=== PATIENT | female | born 1950 | race Caucasian/White ===

== ENCOUNTER → 2016-04-03 | Outpatient (CLI) | payer BC ==
[~2016-04-03] MED LIST: CALC-20 PO; LEVO50TA6 PO; LORA10TA5 PO
[2016-04-03 09:41] LABS: BASO % 0.4 %; BASO ABS # 0.02 K/uL (0-0.2); COMPLETE YES; EOS % 0.7 %; HEMATOCRIT 35.3 % (37-47); IG% 0.2 %; LYMPH % 24.2 %; LYMPH ABS # 1.34 K/uL (1.2-3.4); MEAN CELL VOLUME 89.6 fL (80-100); MEAN CORPUSCULAR HEMOGLOBIN 29.7 pg (25-34); MEAN CORPUSCULAR HGB CONC 33.1 g/dl (32-36); MEAN PLATELET VOLUME 11.2 fL (7.4-10.4); NEUT % 65.5 %; PLATELET COUNT 205 K/uL (130-400); RED BLOOD COUNT 3.94 M/uL (4.2-5.4); WHITE BLOOD COUNT 5.53 K/uL (4.8-10.8)
[2016-04-03 10:06] LABS: ALT/SGPT 20 U/L (12-78); BLOOD UREA NITROGEN 15 mg/dl (7-18); BUN/CREATININE RATIO 20.3 (10-20); CALCIUM 8.8 mg/dl (8.5-10.1); CARBON DIOXIDE 26 mmol/L (21-32); CHLORIDE 105 mmol/L (98-107); CHOLESTEROL 224 mg/dl (0-200); CREATININE 0.72 mg/dl (0.60-1.20); GLUCOSE 78 mg/dl (70-99); POTASSIUM 3.7 mmol/L (3.5-5.1); SODIUM 141 mmol/L (136-145); TRIGLYCERIDES 58 mg/dl (0-150); VERY LOW DENSITY LIPOPROT CALC 12 mg/dl
[2016-04-03 10:13] LABS: ALB/GLOB RATIO 1.4 (0.9-2); ALKALINE PHOSPHATASE 43 U/L (45-117); AST/SGOT 17 U/L (15-37); CHOLESTEROL/HDL RATIO 2.9; FERRITIN 82.1 ng/ml (8.0-388.0); HDL CHOLESTEROL 78 mg/dl; LDL CHOLESTEROL CALCULATED 134 mg/dl
== END | disposition home or self-care (01) ==
LOC: C.LAB1850 08:35
PROVIDERS: ATTEND Family Medicine
DX: D64.9 Anemia, unspecified (principal); E55.9 Vitamin D deficiency, unspecified; E78.5 Hyperlipidemia, unspecified

== ENCOUNTER → 2016-07-17 | Outpatient (CLI) | payer BC ==
--- NOTE | 2016-07-17 16:28 | MAMMOGRAPHY REPORT ---
BILATERAL DIGITAL SCREENING MAMMOGRAM TOMOSYNTHESIS WITH CAD: 07/17/2016 CLINICAL HISTORY: Routine screening. Patient has no complaints. TECHNIQUE: Breast tomosynthesis in addition to standard 2D mammography was performed. Current study was also evaluated with a Computer Aided Detection (CAD) system. COMPARISON: Comparison is made to exams dated: 07/14/2015 mammogram, 07/13/2014 mammogram, 07/10/2013 [facility], 06/16/2012 mammogram, 06/23/2011 mammogram, and 01/05/2010 mammo gram - [facility]. BREAST COMPOSITION: There are scattered areas of fibroglandular density in both breasts. FINDINGS: An asymmetry in the medial posterior right breast appears similar on prior mammograms dati ng back to at least 07/10/2013 and likely 06/26/2012, therefore likely benign. No new suspicious ma ss, architectural distortion or cluster of microcalcifications is seen. IMPRESSION: ACR BI-RADS CATEGORY 1: NEGATIVE There is no mammographic evidence of malignancy. A 1 year screening mammogram is recommended. The p atient will receive written notification of the results. Approximately 10% of breast cancers are not detected with mammography. A negative mammographic repor t should not delay biopsy if a clinically suggestive mass is present. Cleo Gaviria M.D. ay/:07/17/2016 16:10:02 Engineer Rf Deployment: Tawana BERUMEN)(Sumi), [facility] letter sent: Normal 1/2 BI-RADS Code: ACR BI-RADS Category 1: Negative
== END | disposition home or self-care (01) ==
LOC: C.MAMM 08:31
PROVIDERS: ATTEND Internal Medicine
DX: Z12.31 Encounter for screening mammogram for malignant neoplasm of breast (principal)

== ENCOUNTER → 2016-12-27 | Outpatient (CLI) | payer BC ==
--- NOTE | 2016-12-27 09:57 | DIAGNOSTIC IMAGING REPORT ---
CHEST 2 VIEWS ROUTINE CLINICAL HISTORY: R06.09 Dyspnea on [id number] Unexplained weight loss COMPARISON STUDY: No previous studies for comparison. FINDINGS: The cardiac and mediastinal contours are normal. There is no evidence of focal pulmonary consolidation. There is no evidence of failure. No pleural effusions are visualized.[ IMPRESSION: No active disease in the chest. Electronically signed by: Rogelio Mtz M.D. 12/27/2016 9:56 AM Dictated Date/Time: 12/27/2016 9:56 AM
== END | disposition home or self-care (01) ==
LOC: C.RAD1850 09:46
PROVIDERS: ATTEND Internal Medicine
DX: R05 Cough (principal); R06.09 Other forms of dyspnea; R63.4 Abnormal weight loss

== ENCOUNTER → 2017-02-12 | Outpatient (CLI) | payer OTHER ==
[2017-02-12 13:06] LABS: BASO % 0.4 %; BASO ABS # 0.03 K/uL (0-0.2); COMPLETE YES; EOS % 0.7 %; HEMATOCRIT 35.6 % (37-47); IG% 0.1 %; LYMPH % 28.8 %; LYMPH ABS # 1.93 K/uL (1.2-3.4); MEAN CORPUSCULAR HEMOGLOBIN 29.5 pg (25-34); MEAN PLATELET VOLUME 11.1 fL (7.4-10.4); MONO % 7.9 %; NEUT % 62.1 %; PLATELET COUNT 220 K/uL (130-400); RED BLOOD COUNT 3.87 M/uL (4.2-5.4)
[2017-02-12 13:40] LABS: ALT/SGPT 20 U/L (12-78); AST/SGOT 14 U/L (15-37); BLOOD UREA NITROGEN 13 mg/dl (7-18); BUN/CREATININE RATIO 18.9 (10-20); CALCIUM 8.4 mg/dl (8.5-10.1); CARBON DIOXIDE 28 mmol/L (21-32); CHLORIDE 102 mmol/L (98-107); CREATININE 0.67 mg/dl (0.60-1.20); GLUCOSE 93 mg/dl (70-99); POTASSIUM 3.4 mmol/L (3.5-5.1); SODIUM 136 mmol/L (136-145)
[2017-02-12 13:50] LABS: ALB/GLOB RATIO 1.1 (0.9-2); ALKALINE PHOSPHATASE 48 U/L (45-117)
== END | disposition home or self-care (01) ==
LOC: C.LAB1850 11:52
PROVIDERS: ATTEND Internal Medicine
DX: E03.9 Hypothyroidism, unspecified (principal); Z00.00 Encounter for general adult medical examination without abnormal findings; R05 Cough; R63.4 Abnormal weight loss

== ENCOUNTER → 2017-04-12 | Day surgery (SDC) | payer OTHER ==
[2017-03-26 14:10] VITALS: BMI 22.0
[~2017-04-12] VITALS: Ht 162.6 cm; Wt 58.2 kg
[~2017-04-12] MED LIST changes: +ASPI325T39 PO; +CHOL1000 PO; -LEVO50TA6 PO; +LEVO75TA PO; +LIDOCAINE HCL 2% 2 ML VIAL (20MG/ML) ONE; -LORA10TA5 PO; +LORA10TA6 PO; +PROPOFOL IV EMULSION 10 MG/ML 20 ML VIAL IV ONE; +SODIUM CHLORIDE 0.9% 500ML 500 ML IV ONE
[2017-04-12 13:12] VITALS: Ht 162.6 cm; Wt 58.2 kg
--- NOTE | 2017-04-12 13:53 | Endo History and Physical ---
History & Physical Date of Service: Apr 12, 2017. Chief Complaint: COUGH, UNEXPLAINED WEIGHT LOSS Referring Physician: DR. GASTON History of Present Illness cough, wt loss, hx polyps Past Surgical History Hx Cardiac Surgery: No Hx Internal Defibrillator: No Hx Pacemaker: No Hx Abdominal Surgery: No Hx of Implantable Prosthesis: No Hx Post-Op Nausea and Vomiting: No Hx Cancer Surgery: No Hx Thoracic Surgery: No Hx Orthopedic: No Hx Urinary Tract Surgery: No Family History None Social History Smoking Status: Never Smoker Hx Substance Use: No Hx Alcohol Use: Yes (OCCASIONAL/SOCIAL) Allergies Coded Allergies: Meperidine (Verified Allergy, Mild, GI UPSET, 03/26/17) Penicillins (Verified Allergy, Mild, PT DOES NOT REMEMBER REACTION, ) Current Medications Reported Home Medications Medications Dose Route/Sig Max Daily Dose Days Date Category Vitamin D3 (Cholecalciferol) 1,000 Unit Tab 1 Tab PO DAILY 03/26/17 Reported Aspirin Ec (Aspirin) 325 Mg Tab 325 Mg PO DAILY PRN 03/26/17 Reported Synthroid (Levothyroxine Sodium) 75 Mcg Tab 75 Mcg PO QAM 03/26/17 Reported Calcium 600 + D (Calcium Carbonate-Vitamin D) 1 Tab Tab 1 Tablet PO DAILY 04/09/13 Reported Claritin (Loratadine) 10 Mg Tab 10 Mg PO WK 04/09/13 Reported Vital Signs Weight (Kilograms): 58.18 Height (Feet): 5 Height (Inches): 4 Date Time Temp Pulse Resp B/P (MAP) Pulse Ox O2 Delivery O2 Flow Rate FiO2 04/12/17 13:20 37 74 18 144/66 (92) 99 Room Air Physical Exam General Appearance: WD/WN, no apparent distress Respiratory/Chest: Auscultation: breath sounds normal Cardiovascular: Heart Auscultation: RRR Abdomen: Bowel Sounds: normal Inspection & Palpation: soft, non-distended, no tenderness, guarding & rebound Assessment and Plan EGD/colon
--- NOTE | 2017-04-12 14:35 | Discharge Instructions ---
Endoscopy Patient Instructions Date / Procedure(s) Performed Apr 12, 2017. Colonoscopy, EGD Allergy Information Coded Allergies: Meperidine (Verified Allergy, Mild, GI UPSET, 03/26/17) Penicillins (Verified Allergy, Mild, PT DOES NOT REMEMBER REACTION, ) Discharge Date / Findings Apr 12, 2017. 1) normal EGD/push enterscopy-bx'd 2) colon with polyp removed/hemorrhoids Medication Instructions Restart Stopped Medication(s): Reported Home Medications Medications Dose Route/Sig Max Daily Dose Days Date Category Vitamin D3 (Cholecalciferol) 1,000 Unit Tab 1 Tab PO DAILY 03/26/17 Reported Aspirin Ec (Aspirin) 325 Mg Tab 325 Mg PO DAILY PRN 03/26/17 Reported Synthroid (Levothyroxine Sodium) 75 Mcg Tab 75 Mcg PO QAM 03/26/17 Reported Calcium 600 + D (Calcium Carbonate-Vitamin D) 1 Tab Tab 1 Tablet PO DAILY 04/09/13 Reported Claritin (Loratadine) 10 Mg Tab 10 Mg PO WK 04/09/13 Reported Reported Home Medications Medications Dose Route/Sig Max Daily Dose Days Date Category Vitamin D3 (Cholecalciferol) 1,000 Unit Tab 1 Tab PO DAILY 03/26/17 Reported Aspirin Ec (Aspirin) 325 Mg Tab 325 Mg PO DAILY PRN 03/26/17 Reported Synthroid (Levothyroxine Sodium) 75 Mcg Tab 75 Mcg PO QAM 03/26/17 Reported Calcium 600 + D (Calcium Carbonate-Vitamin D) 1 Tab Tab 1 Tablet PO DAILY 04/09/13 Reported Claritin (Loratadine) 10 Mg Tab 10 Mg PO WK 04/09/13 Reported Provider Instructions Activity Restrictions - No exercising or heavy lifting for 24 hours. - Do not drink alcohol the day of the procedure. - Do not drive a car or operate machinery until the day after the procedure. - Do not make any important decisions or sign important papers in 24 hours after the procedure. Following Day: - Return to full activity which may include returning to work/school. Diet Start your diet with liquids and light foods (jello, soup, juice, toast). Then eat your usual diet if not nauseated. Treatment For Common After Affects For mild abdominal pain, bloating, or excessive gas: - Rest - Eat lightly - Lie on right side Follow-Up Information Follow-up with DR. GASTON as scheduled Anesthesia Information What You Should Know You have had a procedure that required some medicine to reduce anxiety and discomfort. This treatment is called moderate sedation. After receiving the treatment, you may be sleepy, but you will be able to breathe on your own. The effects of the treatment may last for several hours. Follow these instructions along with Activity/Diet recommendations noted above: * Do NOT do anything where dizziness or clumsiness would be dangerous. * Rest quietly at home today, then you can be up and about tomorrow. * Have a responsible person stay with you the rest of today. * You may have had an I.V. today. If so, you may take the dressing off later today. Recommendations Call your doctor if: * Trouble breathing * Continuous vomiting for more than 24 hours * Temperature above 101 degrees * Severe abdominal pain or bloating * Pain not relieved by pain medicine ordered * There is increased drainage or redness from any incision * A large amount of rectal bleeding greater than 2-3 tablespoons. (If you had a polyp/s removed or have hemorrhoids, a small amount of blood - from the rectum is to be expected.) * You have any unanswered questions or concerns. IN THE EVENT OF A SERIOUS EMERGENCY, GO TO THE NEAREST EMERGENCY ROOM Your discharge instructions were prepared by provider Jose Fuentes. Patient Instructions Signature Page Natalee Leyva Patient (or Guardian) Signature/Date: I have read and understand the instructions given to me by my caregivers. Caregiver/RN/Doctor Signature/Date: The above-named patient and/or guardian has received patient instructions on this date. + Original Patient Signature Page (only) stays with chart. Please make copy for patient.
--- NOTE | 2017-04-12 14:47 | GI REPORT ---
Procedure Date: 04/12/2017 1:10 PM Procedure: Colonoscopy Indications: High risk colon cancer surveillance: Personal history of colonic polyps Medicines: Propofol per Anesthesia Complications: No immediate complications. Estimated blood loss: Minimal. Estimated Blood Loss: Estimated blood loss was minimal. Procedure: Pre-Anesthesia Assessment: - Prior to the procedure, a History and Physical was performed, and patient medications and allergies were reviewed. The patient's tolerance of previous anesthesia was also reviewed. The risks and benefits of the procedure and the sedation options and risks were discussed with the patient. All questions were answered, and informed consent was obtained. Prior Anticoagulants: The patient has taken no previous anticoagulant or antiplatelet agents. ASA Grade Assessment: II - A patient with mild systemic disease. After reviewing the risks and benefits, the patient was deemed in satisfactory condition to undergo the procedure. After I obtained informed consent, the scope was passed under direct vision. Throughout the procedure, the patient's blood pressure, pulse, and oxygen saturations were monitored continuously. The scope was introduced through the anus and advanced to the terminal ileum, with identification of the appendiceal orifice and IC valve. The colonoscopy was performed without difficulty. The patient tolerated the procedure well. The quality of the bowel preparation was good. Findings: The perianal and digital rectal examinations were normal. Pertinent negatives include normal sphincter tone, no palpable rectal lesions and no anal lesion or abnormality was detected. A 4 mm polyp was found in the ascending colon. The polyp was sessile. The polyp was removed with a cold biopsy forceps. Resection and retrieval were complete. Estimated blood loss was minimal. Verification of patient identification for the specimen was done by the physician and orthodontic laboratory technician using the patient's name and medical record number. Non-bleeding internal hemorrhoids were found during retroflexion. The hemorrhoids were mild. Verification of patient identification for the specimen was done by the physician and orthodontic laboratory technician using the patient's name and medical record number. The terminal ileum appeared normal. The exam was otherwise without abnormality. The retroflexed view of the distal rectum and anal verge was normal and showed no anal or rectal abnormalities. Impression: - One 4 mm polyp in the ascending colon, removed with a cold biopsy forceps. Resected and retrieved. - Non-bleeding internal hemorrhoids. - The examined portion of the ileum was normal. - The examination was otherwise normal. - The distal rectum and anal verge are normal on retroflexion view. Recommendation: - Discharge patient to home (ambulatory). - Resume regular diet. - Continue present medications. - Await pathology results. - Return to referring physician as previously scheduled. - Repeat colonoscopy for surveillance based on pathology results. MD Jose Lr MD 04/12/2017 2:46:49 PM This report has been signed electronically. Note Initiated On: 04/12/2017 1:10 PM I attest to the content of the Intraoperative Record and orders documented therein, exceptions below
--- NOTE | 2017-04-12 14:51 | GI REPORT ---
Procedure Date: 04/12/2017 1:10 PM Procedure: Upper GI endoscopy Indications: Anorexia, Chronic cough, Weight loss Medicines: Propofol per Anesthesia Complications: No immediate complications. Estimated blood loss: Minimal. Estimated Blood Loss: Estimated blood loss was minimal. Estimated blood loss was minimal. Procedure: Pre-Anesthesia Assessment: - Prior to the procedure, a History and Physical was performed, and patient medications and allergies were reviewed. The patient's tolerance of previous anesthesia was also reviewed. The risks and benefits of the procedure and the sedation options and risks were discussed with the patient. All questions were answered, and informed consent was obtained. Prior Anticoagulants: The patient has taken no previous anticoagulant or antiplatelet agents. ASA Grade Assessment: II - A patient with mild systemic disease. After reviewing the risks and benefits, the patient was deemed in satisfactory condition to undergo the procedure. After obtaining informed consent, the endoscope was passed under direct vision. Throughout the procedure, the patient's blood pressure, pulse, and oxygen saturations were monitored continuously. The scope was introduced through the mouth, and advanced to the proximal jejunum. The upper GI endoscopy was accomplished without difficulty. The patient tolerated the procedure well. Findings: The examined esophagus was normal. The Z-line was regular and was found 40 cm from the incisors. The entire examined stomach was normal. Biopsies were taken with a cold forceps for histology. Estimated blood loss was minimal. Verification of patient identification for the specimen was done by the physician and solar fabrication technician using the patient's name and medical record number. The examined duodenum was normal. Biopsies for histology were taken with a cold forceps for evaluation of celiac disease. Estimated blood loss was minimal. Verification of patient identification for the specimen was done by the physician and solar fabrication technician using the patient's name and medical record number. The examined jejunum was normal. The cardia and gastric fundus were normal on retroflexion. Retained gastric contents are not identified on this exam. A 1 cm hiatal hernia was present. Impression: - Normal esophagus. - Z-line regular, 40 cm from the incisors. - Normal stomach. Biopsied. - Normal examined duodenum. Biopsied. - Normal examined jejunum. Recommendation: - Discharge patient to home (ambulatory). - Resume regular diet. - Continue present medications. - Await pathology results. - Repeat upper endoscopy for surveillance based on pathology results. - Return to referring physician as previously scheduled. MD Jose Lr MD 04/12/2017 2:51:17 PM This report has been signed electronically. Note Initiated On: 04/12/2017 1:10 PM I attest to the content of the Intraoperative Record and orders documented therein, exceptions below
--- NOTE | 2017-04-12 14:54 | Anesthesiology Progress Note ---
Anesthesia Post Op Note Date & Time Apr 12, 2017 at 14:54 Vital Signs Pain Intensity: 0 Vital Signs Past 12 Hours Date Time Temp Pulse Resp B/P (MAP) Pulse Ox O2 Delivery O2 Flow Rate FiO2 04/12/17 13:20 37 74 18 144/66 (92) 99 Room Air Notes Mental Status: alert / awake / arousable, participated in evaluation Pt Amnestic to Procedure: Yes Nausea / Vomiting: adequately controlled Pain: adequately controlled Airway Patency, RR, SpO2: stable & adequate BP & HR: stable & adequate Hydration State: stable & adequate Anesthetic Complications: no major complications apparent
[2017-04-12 15:08] VITALS: BP 143/62; PULSE 68; O2SAT 99
== END | disposition home or self-care (01) ==
LOC: C.GI 12:49
PROVIDERS: ATTEND Internal Medicine Gastroenterology
DX: Z12.11 Encounter for screening for malignant neoplasm of colon (principal); Z86.010 Personal history of colon polyps; K64.8 Other hemorrhoids; R63.0 Anorexia; R05 Cough; K44.9 Diaphragmatic hernia without obstruction or gangrene; J45.909 Unspecified asthma, uncomplicated; Z88.0 Allergy status to penicillin

== ENCOUNTER → 2017-07-19 | Outpatient (CLI) | payer OTHER ==
[~2017-07-19] MED LIST changes: -LIDOCAINE HCL 2% 2 ML VIAL (20MG/ML) ONE; -PROPOFOL IV EMULSION 10 MG/ML 20 ML VIAL IV ONE; -SODIUM CHLORIDE 0.9% 500ML 500 ML IV ONE
--- NOTE | 2017-07-20 07:47 | MAMMOGRAPHY REPORT ---
BILATERAL DIGITAL SCREENING MAMMOGRAM TOMOSYNTHESIS WITH CAD: 07/19/2017 CLINICAL HISTORY: Routine screening. Patient has no complaints. TECHNIQUE: Breast tomosynthesis in addition to standard 2D mammography was performed. Current study was also evaluated with a Computer Aided Detection (CAD) system. COMPARISON: Comparison is made to exams dated: 07/17/2016 mammogram, 07/14/2015 mammogram, 07/13/2014 mamm ogram, 07/10/2013 mammogram - [facility], 06/16/2012 mammogram, and 06/23/2011 mammogram - [facility]. BREAST COMPOSITION: There are scattered areas of fibroglandular density in both breasts. FINDINGS: No suspicious masses, calcifications, or areas of architectural distortion are noted in ei ther breast. There has been no significant interval change compared to prior exams. IMPRESSION: ACR BI-RADS CATEGORY 1: NEGATIVE There is no mammographic evidence of malignancy. A 1 year screening mammogram is recommended. The pa tient will receive written notification of the results. Approximately 10% of breast cancers are not detected with mammography. A negative mammographic report should not delay biopsy if a clinically suggestive mass is present. Annette Araujo M.D. ah/:07/19/2017 09:21:08 Oil Inspector: Lora GUERIN(Rojas)(Sumi)(LAURI), [facility] letter sent: Normal 1/2 BI-RADS Code: ACR BI-RADS Category 1: Negative
== END | disposition home or self-care (01) ==
LOC: C.MAMM 08:43
PROVIDERS: ATTEND Internal Medicine
DX: Z12.31 Encounter for screening mammogram for malignant neoplasm of breast (principal)

== ENCOUNTER → 2017-10-23 | Outpatient (CLI) | payer OTHER | END | disposition home or self-care (01) | LOC: C.MAMM 10:10 | PROVIDERS: ATTEND Internal Medicine | DX: Z00.00 Encounter for general adult medical examination without abnormal findings (principal); M85.89 Other specified disorders of bone density and structure, multiple sites; M81.0 Age-related osteoporosis without current pathological fracture ==

== ENCOUNTER 2023-02-14 07:57 | Inpatient (IN) ==
[2023-02-14 09:41] LABS: Basophils # (auto) 0.04 K/uL (0.00-0.20); Basophils % (auto) 0.8 %; Eosinophils # (auto) 0.01 K/uL (0.00-0.50); Eosinophils % (auto) 0.2 %; Hematocrit (blood only) 36.4 % (37.0-47.0); Hemoglobin 12.1 g/dl (12.0-16.0); Immature Granulocytes # (auto) 0.01 K/uL (0.01-0.20); Immature Granulocytes % (auto) 0.2 %; Lymphocytes # (auto) 1.05 K/uL (1.20-3.40); Lymphocytes % (auto) 21.4 %; Mean Corpuscular Hemoglobin 29.9 pg (25.0-34.0); Mean Corpuscular Hgb Conc 33.2 g/dL (32.0-36.0); Mean Corpuscular Volume 89.9 fL (80.0-100.0); Mean Platelet Volume 10.1 fL (9.4-12.4); Monocytes % (auto) 10.2 %; Neutrophils # (auto) 3.29 K/uL (1.40-6.50); Neutrophils % (auto) 67.2 %; Platelet Count 238 K/uL (130-400); RDW Coefficient of Variation 12.1 % (11.5-14.5); RDW Standard Deviation 40.1 fL (36.4-46.3); Red Blood Count 4.05 M/uL (4.20-5.40)
[2023-02-14 09:51] LABS: Acetaminophen < 3 ug/ml (10-30); Salicylate < 3.0 mg/dl (3.0-30)
[2023-02-14 10:10] LABS: Albumin Globulin Ratio 1.5 (0.9-2); Albumin Level 4.4 gm/dl (3.4-5.0); BUN Creatinine Ratio 14.7 (10-20); Bilirubin,Total 0.9 mg/dl (0.2-1.0); Calcium 9.1 mg/dl (8.6-10.3); Creatinine Clr Calc Pharmacy 53.4 ml/min; Est GFR (African American) 102.7 ml/min; Est GFR (Non-African American) 88.6 ml/min; Globulin 2.9 gm/dl (2.5-4.0); Potassium 3.5 mmol/L (3.5-5.1); Total Protein 7.3 gm/dl (6.0-8.3)
[2023-02-14 10:23] LABS: Thyroid Stimulating Hormone 0.507 uIu/ml (0.300-4.500)
[2023-02-14 10:50] LABS: Appearance Urine Clear (Clear); Bacteria Urine Automated Negative (Negative); Bilirubin Urine Negative (Negative); Blood Urine Trace (Negative); Cast Urine Automated 0 /lpf (0-5); Color Urine Yellow; Epithelial Cell Urine Auto 0-5 /lpf (0-5); Glucose Urine UA Negative (Negative); Ketones Urine Negative (Negative); Leukocyte Esterase Urine Negative (Negative); Nitrite Urine Negative (Negative); Protein Urine Negative (Negative); RBC Urine Automated 0-4 /hpf (0-4); Specific Gravity Urine 1.008 (1.000-1.030); Urobilinogen Urine Negative (Negative); WBC Urine Automated 0 /hpf (0-5)
[2023-02-14 11:29] LABS: Amphetamines+Metham, Urine Neg (Neg); Barbiturates, Urine Neg (Neg); Benzodiazepine, Urine Neg (Neg); Cocaine, Urine Neg (Neg); MDMA (Ecstacy), Urine Neg (Neg); Marijuana, Urine Neg (Neg); Methadone, Urine Neg (Neg); Opiate, Urine Neg (Neg); Phencyclidine, Urine Neg (Neg)
--- NOTE | 2023-02-14 11:51 | Emergency Department Note ---
Impression & Plan AMS (altered mental status), Memory problem ED Provider Note ED Provider Note NAME: SUKUAMR VIERA AGE:72 SEX: Female : 1950 ARRIVES VIA: private vehicle INFORMANT: Patient ED PROVIDER(s): Nadja Macario DO CHIEF COMPLAINT: memory issues HPI: This is a 72-year-old female who presents emergency department stating she is here for an appointment. She states she is "here to get a thing done, that I cannot tell you, because it is very complicated". Patient says she sees Dr. Navas and works with someone who helps her named Vaishali. She states she "supposed to get a thing done that she does not recall the name of and does not know where she is supposed to go but that is why she is here". Patient states she has no pain. She states she does not believe she is sick. She states she takes levothyroxine but cannot recall any other medications. She does not know what her allergies are. When I ask if she is here for blood work she states "I think so". Patient did have labs and urine collected by nursing staff per protocol in triage. Case management did try to speak with the patient in the emergency room. Given her history of depression they did ask questions regarding her mental health. She denied SI or HI then told case management she would no longer speak with them until she speaks with a doctor. Patient states "I can't give you more details bc it is too complicated". She does admit to having difficulty remembering things. On review of EMR, patient's PCP Dr. Navas as well as her outpatient casey saw operator Vaishali, have been in contact with the patient and have been trying to arrange for her to have a neuropsych evaluation as well as an MRI. Patient was scheduled to see neurology last week and did not go to the appointment. The notes document concern for her memory issues and cognitive decline and possible dementia. PAST MEDICAL HISTORY:See Below PAST SURGICAL HISTORY:See Below FAMILY HISTORY:See Below SOCIAL HISTORY:See Below HOME MEDICATIONS:See Below ALLERGIES:See Below VITALS:See Below PHYSICAL EXAMINATION: GENERAL: alert, well appearing, well nourished, no distress, non-toxic EYE EXAM: normal conjunctiva, PERRL and EOM's grossly intact NECK: supple, no nuchal rigidity, no adenopathy, non-tender LUNGS: Clear to auscultation. Normal chest wall mechanics, no w/r/r HEART: no murmurs, S1 normal and S2 normal ABDOMEN: abdomen soft, non-tender, normo-active bowel sounds, no masses, no rebound or guarding. SKIN: no rashes, petechiae, orbruising UPPER EXTREMITIES: upper extremities are grossly normal. FROM, nml pulses b/l. LOWER EXTREMITIES: No pitting edema. FROM, nml pulses b/l. NEURO EXAM: Confused, cranial nerves II-XII grossly intact, normal speech, no facial droop,nogross weakness of arms, no gross weakness of legs. Gross sensation intact. No ataxia. Vital Signs: reviewed and remarkable Differential Diagnosis: ICH, CVA, electrolyte abnormality, anemia, medication ADR, noncompliance, dementia, metabolic encephalopathy, thyroid dysfunction, malnutrition, as well as others were considered MEDICAL DECISION MAKING: This is a 72-year-old female who presents to the emergency department but cannot tell me why. Patient could not answer questions of orientation or give much history. Significant time spent reviewing recent notes in EMR by her PCP as well as outpatient case management. I did contact her PCP as well as her outpatient casey saw operator via [facility] text and then spoke on the phone with her outpatient casey saw operator. I was concerned for patient's own safety and her ability to care for herself given she could not answer questions of orientation could not tell me anything about her medical history, medications, or why she was here. It was concerning also that she had driven in this particular state. Patient's PCP and casey saw operator had been trying to work with her and get her into additional imaging and evaluation due to concern for cognitive decline and likely underlying dementia. I spoke with them several times. I then involved the hospital supervisor pumping and also ask case management to speak with her as well as the office of aging. There was significant discussion and debate regarding patient's capacity for decision making as well as holding her against her well as she stated she wanted to go home. I did not feel patient had capacity to make an informed rational decision and did not have capacity to sign an AMA. This was also discussed with Dr. Arenas of psychiatry who came and evaluated the patient at bedside. I also spoke with the hospital research attorney. I had called and left a message with the primary contact listed in the patient's record Sadia who called back and had had similar concerns noticing she had been declining cognitively and recent weeks. She contacted a brother who then called us and I was able to speak with him additionally. He had similar concerns also was concerned that she was living on her own. He was concerned that she was not eating and likely needed placement. After extensive discussion, case discussed with the hospitalist for additional evaluation and management. Consultation(s): 1135: Discussed with Dr. Navas via [employer] Text. 1149: Discussed with Vaishali, case mgmt, who has been working with the patient. Hx of depression. Refused therapy. Refused neuropsych appointment. She will call and speak with the patient via phone. 1340: Discussed with Vaishali again. She will call the patient again. 1345: I asked charge nurse to contact wash house worker and hospital research attorney. 1422: I left a message with listed primary contact, Sadia. 1422: I asked case filler so contact psychiatrist additionally. 1430: I spoke with wash house worker who states his is an issue for the "ethics committee". I asked them to contact the Office of Aging. 1450: Dr. iDaz now here. Will speak with the patient. 1515: Dr. Diaz recommending keeping the patient for additional evaluation also. 1536: Left a message with Vick Navarrete. 1540: Discussed with Sadia robles's cousin. She states they speak about every 3 weeks. She states she has had the same concerns bc she doesn't seem to know the day. She states her brother did recently visit her and she didn't remember this visit. Her brother, Adam, was concerned for her and suggested she go live at a facility per Sadia. 1606: Discussed with Vick Navarrete. 1622: Spoke with Moo, , brother. Was concerned about "how skinny she was". He feels she has lost 20-30 lbs over the last year. Is concerned that she is still driving. States he does not have room at his house for her to live with him, and they have looked into facilities near where they live outside of [place]. ER Treatment Provided: See below Diagnostics Interpreted By Me: -ECG: [] -Cardiac Monitoring: An order was placed for continuous cardiac monitoring. The monitor shows a rate of 80 with normal sinus rhythm. -Laboratory studies: As stated above and show below. -Imaging studies: [] Triage Nursing Note Reviewed Prior/Outside Records Reviewed Critical care: Critical care of 120 min performed to assess and manage high likelihood of life- threatening altered mental, involving labs and imaging performed with assessment to evaluate altered mental status and concern for capacity with frequent reassessment. This time includes bedside time, treatment discussions with patient/family/consultants, documentation time and excludes procedure time. Past Med/Surg History Medical History Vitamin B12 deficiency Depression Junior's thyroiditis Osteoporosis treated with Prolia - transitioned to alendronate 01/01 Postmenopausal atrophic vaginitis Tubular adenoma Vitamin D deficiency Meniere's disease Hypothyroidism Surgical History History of cataract surgery left History of colonoscopy H/O dilation and curettage x2 Family History Mother Lung cancer Aunt Lung cancer Father Stroke Denies family history of Ovarian cancer Prostate cancer Myocardial infarction Breast cancer Colorectal cancer Social History Smoking Status: Never smoker Second Hand Exposure: No; Do You Dip or Chew Tobacco: No; Hx Alcohol Use: No Hx Substance Use: No Preferred Language: Tajik Communication Ability: confused Visual Impairment: No Limitations Hearing Ability: Hard of Hearing Customer Contact Representative Required: No Beliefs That Will Affect Care: None marital status: Single Current Living Situation: Alone 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 Safe at Home: Yes Safety Concerns: Feels Safe At This Time Safety Concerns Comment: her neighbor has been causing her a lot of problems, "she is crazy." Childhood Exposure to Second-Hand Smoke: No Diet: regular Dental Care, Regularly: No Physical Activity Frequency: Daily Seatbelt Use: always Sunscreen Use: Yes Assistive Devices: Glasses Allergies Allergies Allergy/AdvReac Type Severity Reaction Status Date / Time bee venom protein (honey bee) Allergy Severe Anaphylaxis Verified 02/14/23 12:53 Penicillins Allergy Mild PT DOES Verified 02/14/23 12:53 NOT REMEMBER REACTION house dust Allergy Unknown Unknown Verified 02/14/23 12:53 perfume Allergy Unknown Unknown Verified 02/14/23 12:53 meperidine AdvReac Mild GI UPSET Verified 02/14/23 12:53 coconut AdvReac Unknown Unknown Verified 02/14/23 12:53 feathers AdvReac Unknown Unknown Verified 02/14/23 12:53 grass pollen AdvReac Unknown Unknown Verified 02/14/23 12:53 mold AdvReac Unknown Unknown Verified 02/14/23 12:53 tree and shrub pollen AdvReac Unknown Unknown Verified 02/14/23 12:53 Animal dander Allergy Unknown Unknown Uncoded 02/14/23 12:53 Home Meds Home Medications Medication Instructions Recorded Confirmed calcium citrate 315 mg 1 tab PO QAM 09/20/18 02/14/23 calcium-vitamin D3 6.25 mcg (250 unit) tablet (Citracal + Vitamin D Maximum) psyllium husk 0.4 gram capsule 0.4 g PO DAILY PRN Constipation 11/28/22 02/14/23 (Daily Fiber) alendronate 70 mg tablet 70 mg PO WK 02/14/23 02/14/23 Previous Rx's Medication Instructions Recorded levothyroxine 75 mcg tablet 75 mcg PO DAILY #90 tabs 10/18/22 mecobalamin (vitamin B12) 1,000 1,000 mcg PO DAILY #90 tabs 01/12/23 mcg chewable tablet Results & Data (ED) Vital Signs Vital Signs - 24 hr 02/14/23 08:40 02/14/23 12:18 Temperature 36.5 C Temperature Source Skin Pulse Rate 86 Pulse Rate [Left Finger] 84 Respiratory Rate 20 18 Respiratory Effort / Characteristics Non-Labored Spontaneous Non-Labored Respiratory Depth Normal Normal Respiratory Pattern Regular Blood Pressure 167/87 H Blood Pressure [Left Arm] 159/85 H Blood Pressure Mean 113 Blood Pressure Mean [Left Arm] 109 Blood Pressure Position [Left Arm] Sitting Pulse Oximetry 99 98 Oxygen Delivery Method Room Air Room Air Sepsis Recent Fever Within 48 Hours No Sepsis New/Unexplained Change in Mental Status N/A Sepsis Action Taken by Nursing No Action Required Laboratory Data 02/15/23 06:52 02/15/23 06:52 Lab Results 02/14/23 Range/Units 09:15 WBC 4.90 (4.8-10.8) K/ul RBC 4.05 L (4.20-5.40) M/uL Hgb 12.1 (12.0-16.0) g/dl Hct 36.4 L (37.0-47.0) % MCV 89.9 (80.0-100.0) fL MCH 29.9 (25.0-34.0) pg MCHC 33.2 (32.0-36.0) g/dL RDW Std Deviation 40.1 (36.4-46.3) fL RDW Coeff of Luly 12.1 (11.5-14.5) % Plt Count 238 (130-400) K/uL MPV 10.1 (9.4-12.4) fL Immature Gran % (Auto) 0.2 % Neut % (Auto) 67.2 % Lymph % (Auto) 21.4 % [place] % (Auto) 10.2 % Eos % (Auto) 0.2 % Baso % (Auto) 0.8 % Neut # (Auto) 3.29 (1.40-6.50) K/uL Lymph # (Auto) 1.05 L (1.20-3.40) K/uL [place] # (Auto) 0.50 (0.11-0.59) K/uL Eos # (Auto) 0.01 (0.00-0.50) K/uL Baso # (Auto) 0.04 (0.00-0.20) K/uL Immature Gran # (Auto) 0.01 (0.01-0.20) K/uL Sodium 135 L (136-145) mmol/L Potassium 3.5 (3.5-5.1) mmol/L Chloride 101 (98-107) mmol/L Carbon Dioxide 29 (21-32) mmol/L Anion Gap 5 (3-11) BUN 10 (6-23) mg/dl Creatinine 0.68 (0.6-1.2) mg/dl Est Cr Clr Drug Dosing 53.4 ml/min Est GFR ( Amer) 102.7 ml/min Est GFR (Non-Af Amer) 88.6 ml/min BUN/Creatinine Ratio 14.7 (10-20) Glucose 90 (70-99(Fasting)) mg/dl Calcium 9.1 (8.6-10.3) mg/dl Magnesium 2.4 (1.7-2.4) mg/dl Total Bilirubin 0.9 (0.2-1.0) mg/dl AST 17 (13-39) U/L ALT 12 (7-52) U/L Alkaline Phosphatase 31 L (34-104) U/L Total Protein 7.3 (6.0-8.3) gm/dl Albumin 4.4 (3.4-5.0) gm/dl Globulin 2.9 (2.5-4.0) gm/dl Albumin/Globulin Ratio 1.5 (0.9-2) TSH 0.507 (0.300-4.500) uIu/ml Salicylates < 3.0 L (3.0-30) mg/dl Acetaminophen < 3 L (10-30) ug/ml Ethyl Alcohol mg/dL < 10.0 (<10.0) mg/dl Administered Medications Cyanocobalamin (Cyanocobalamin (B-12) 500 Mcg Tablet) 1,000 mcg PO DAILY [facility] Stop: 03/17/23 08:59 Last Admin: 02/15/23 09:40 Dose: 1,000 mcg Documented By: ALEJANDRA Levothyroxine Sodium (Levothyroxine Sodium 75 Mcg Tablet) [facility]: 03/17/23 06:29 Last Admin: 02/15/23 06:32 Dose: 75 mcg Documented By: MICHAEL Discontinued Medications Olanzapine (Olanzapine Zydis 5 Mg Orally Dis. Tab) 2.5 mg PO ONE PRN PRN Reason: Agitation Last Admin: 02/14/23 20:26 Dose: 2.5 mg Documented By: MMG Imaging Data Radiologist's Impression: Head CT 02/14/23 12:14 CT SCAN OF THE BRAIN WITHOUT IV CONTRAST CLINICAL HISTORY: Change in mental status. COMPARISON STUDY: CT of the brain dated 04/09/2013. TECHNIQUE: Unenhanced axial CT scan of the brain is performed from the vertex to the skull base. A dose lowering technique was utilized adhering to the principles of ALARA. CT DOSE: 625.8 mGy.cm FINDINGS: Brain parenchyma: There is age-related involutional change noting [id number] subcortical and periventricular microangiopathic disease. There is no hemorrhage, mass effect, or evidence of acute territorial ischemia by CT criteria. Pugh-white matter differentiation is preserved. No extra-axial fluid collection is seen. Ventricles, sulci, cisterns: Prominent secondary to involutional change. Intracranial vasculature: There is atherosclerotic calcification of the cavernous carotid arteries. Calvarium: Unremarkable. Sinuses and mastoids: The visualized paranasal sinuses are clear. The mastoid air cells are well pneumatized. Orbits: The bony orbits are grossly intact. There are bilateral ocular lens implants. IMPRESSION: There is no hemorrhage, mass effect, or evidence of acute territorial ischemia by CT criteria. ACT 112: Negative or not required by law. Electronically signed by: Vick Hernandez M.D. 02/14/2023 1:07 PM Discharge Plan Visit Data Chief Complaint: Mental Health Evaluation Stated Complaint: MENTAL HEALTH EVAL ED Provider: Nadja Macario Discharge Problem: AMS (altered mental status), Memory problem Discharge Instructions Interventions: ED Discharge Assessment Last Done: 02/14/23 20:55
--- NOTE | 2023-02-14 13:08 | CT Scan Report ---
CT SCAN OF THE BRAIN WITHOUT IV CONTRAST CLINICAL HISTORY: Change in mental status. COMPARISON STUDY: CT of the brain dated 04/09/2013. TECHNIQUE: Unenhanced axial CT scan of the brain is performed from the vertex to the skull base. A do se lowering technique was utilized adhering to the principles of ALARA. CT DOSE: 625.8 mGy.cm FINDINGS: Brain parenchyma: There is age-related involutional change noting [id number] subcortical and pe riventricular microangiopathic disease. There is no hemorrhage, mass effect, or evidence of acute ter ritorial ischemia by CT criteria. Pugh-white matter differentiation is preserved. No extra-axial flui d collection is seen. Ventricles, sulci, cisterns: Prominent secondary to involutional change. Intracranial vasculature: There is atherosclerotic calcification of the cavernous carotid arteries. Calvarium: Unremarkable. Sinuses and mastoids: The visualized paranasal sinuses are clear. The mastoid air cells are well pneu matized. Orbits: The bony orbits are grossly intact. There are bilateral ocular lens implants. IMPRESSION: There is no hemorrhage, mass effect, or evidence of acute territorial ischemia by CT sharon tovar. ACT 112: Negative or not required by law. Electronically signed by: Vick Hernandez M.D. 02/14/2023 1:07 PM
--- NOTE | 2023-02-14 15:20 | Psychiatric Consultation ---
Date of Consultation February 14, 2023 Impression / Recommendations Impression 72 yo female with progressive cognitive decline, presenting to ED with worsening disorientation. Although seems that she is caring for hygiene, no collateral information is available re: her functioning other than that of her outpatient provider who is concerned about dementia and recommending additional work up. Given that she has no idea where she is, cannot verbalize why she came here, hx of cognitive screening suggesting major cognitive disorder, I agree with Dr. Macario that it is unsafe for her to drive home and it is medically necessary she be [place] [facility] [place] and pending safe disposition. Contributing factors to cognitive decline could include vitamin deficiency. would benefit from MoCA and PHQ-9 when able. (1) Altered mental status: Plan She does not have capacity over her medical decision making at this time. In my medical opinion, there is no evidence of a primary psychiatric disorder that would be causing her presentation and she therefore does not fall under [facility] mental health law. Due to her cognitive disorder, she did seem to become more paranoid as questioning progressed and given time of day I suspect she may sundown outside of her normal home environment. If in need of emergency medication for ED or medical hold for acute agitation related to her dementia would start with Zyprexa 2.5 mg IM. Avoid benzos given age/fall risk and possible paradoxical effects. Suggest treating ED physician or hospitalist group reach out to legal and identify a surrogate medical decision maker HILARY. At the time I met with patient she was not agitated and was fine staying in the ED as long as "no one was going to my house" though she is very in the moment and her level of cooperation may change quickly. CPT Code Overall, I spent a total of 55 minutes with this case, including review of chart, review of records, direct evaluation of the patient, counseling the patient, coordination with ED CM and physician. and documentation. Psych History Identifying Data 72 yo female reportedly lives alone in [place]. Presented to ED with confusion. Stat consult is by Dr. Macario for concerns about capacity as patient seems confused and drove to ED by self. Chief Complaint "I don't want people coming to my house." History of Present Illness Patient with no known psych history, difficult historian due to presumed major cognitive disorder. Outpatient notes from Dr. Navas note a mini-Cog assessment of 0 from last month. Patient is unable to state why she came to the ED or provide a chief complaint. She did arrive to triage with an order for a DEXA scan so it's possible given that she's disoriented that she thought it was the scheduled date. Although she is impeccably dressed and groomed and was initially cooperative with labs, she is now stating that she wants to leave, seems to believe that her car is unsafe in the parking lot. Had to be redirected several times re: recommendations for ongoing monitoring for her AMS and MRI/cognitive testing as recommended by outpatient. Case discussed with Dr. Macario as requiring frequent redirection with security to keep from wandering halls. The patient cannot mention buildings here by name, is unaware of date, when approached about the MoCA states "maybe tomorrow" to avoid being asked questions she can't answer. She is unable to list a single friend or local support and closest family is reportedly in [place]. Apparently denied psych hx but did tell triage nurse she felt more depressed past 1.5 months. Unclear what physical symptoms. No current office of aging involvement. Allergies Allergy/AdvReac Type Severity Reaction Status Date / Time bee venom protein (honey bee) Allergy Severe Anaphylaxis Verified 02/14/23 12:53 Penicillins Allergy Mild PT DOES Verified 02/14/23 12:53 NOT REMEMBER REACTION house dust Allergy Unknown Unknown Verified 02/14/23 12:53 perfume Allergy Unknown Unknown Verified 02/14/23 12:53 meperidine AdvReac Mild GI UPSET Verified 02/14/23 12:53 coconut AdvReac Unknown Unknown Verified 02/14/23 12:53 feathers AdvReac Unknown Unknown Verified 02/14/23 12:53 grass pollen AdvReac Unknown Unknown Verified 02/14/23 12:53 mold AdvReac Unknown Unknown Verified 02/14/23 12:53 tree and shrub pollen AdvReac Unknown Unknown Verified 02/14/23 12:53 Animal dander Allergy Unknown Unknown Uncoded 02/14/23 12:53 Home Medications Medication Instructions Recorded Confirmed Type calcium citrate 315 mg 1 tab PO QAM 09/20/18 02/14/23 History calcium-vitamin D3 6.25 mcg (250 unit) tablet (Citracal + Vitamin D Maximum) levothyroxine 75 mcg tablet 75 mcg PO DAILY #90 tabs 10/18/22 02/14/23 Rx psyllium husk 0.4 gram capsule 0.4 g PO DAILY PRN Constipation 11/28/22 02/14/23 History (Daily Fiber) mecobalamin (vitamin B12) 1,000 1,000 mcg PO DAILY #90 tabs 01/12/23 02/14/23 Rx mcg chewable tablet alendronate 70 mg tablet 70 mg PO WK 02/14/23 02/14/23 History Patient History Medical History Vitamin B12 deficiency Depression Junior's thyroiditis Osteoporosis treated with Prolia - transitioned to alendronate 01/01 Postmenopausal atrophic vaginitis Tubular adenoma Vitamin D deficiency Meniere's disease Hypothyroidism Surgical History History of cataract surgery left History of colonoscopy H/O dilation and curettage x2 Family History Mother Lung cancer Aunt Lung cancer Father Stroke Denies family history of Ovarian cancer Prostate cancer Myocardial infarction Breast cancer Colorectal cancer Social History Smoking Status: Never smoker Second Hand Exposure: No; Do You Dip or Chew Tobacco: No; Hx Alcohol Use: No Hx Substance Use: No Preferred Language: Turkish Communication Ability: Effective Visual Impairment: No Limitations Hearing Ability: Hard of Hearing Strip Feeder Required: No Beliefs That Will Affect Care: None marital status: Single Current Living Situation: Alone 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 Safe at Home: Yes Safety Concerns Comment: her neighbor has been causing her a lot of problems, "she is crazy." Childhood Exposure to Second-Hand Smoke: No Diet: regular Dental Care, Regularly: No Physical Activity Frequency: Daily Seatbelt Use: always Sunscreen Use: Yes Assistive Devices: Glasses Physical Exam Psychiatric: Orientation: alert and oriented to person Apperance: appropriately dressed and appropriately groomed Eye Contact: good eye contact Motor Behavior: no abnormal motor movements Speech: normal rate/rhythm/volume of speech Affect: + anxious affect Mood: + anxious mood Thought Process: + circumstantial thought process and + concrete thought process Thought Content: + paranoid Suicidal Thoughts: denies suicidal thoughts Homicidal Thoughts: denies homicidal thoughts Hallucinations: no auditory hallucinations and no visual hallucinations Cognition: language grossly intact; + attention not intact Insight: + poor insight Judgment: + poor judgement Vital Signs (Past 24 Hours): Last Vital Signs Temp 36.5 C 02/14/23 08:40 Pulse 84 02/14/23 12:18 Resp 18 02/14/23 12:18 BP 159/85 H 02/14/23 12:18 Pulse Ox 98 02/14/23 12:18 O2 Del Method Room Air 02/14/23 12:18 Review of Systems Unobtainable due to cognitive status Results & Data (PSY) Laboratory Results 02/14/23 02/14/23 Range/Units Unknown 09:15 WBC 4.90 (4.8-10.8) K/ul RBC 4.05 L (4.20-5.40) M/uL Hgb 12.1 (12.0-16.0) g/dl Hct 36.4 L (37.0-47.0) % MCV 89.9 (80.0-100.0) fL MCH 29.9 (25.0-34.0) pg MCHC 33.2 (32.0-36.0) g/dL RDW Std Deviation 40.1 (36.4-46.3) fL RDW Coeff of Luly 12.1 (11.5-14.5) % Plt Count 238 (130-400) K/uL MPV 10.1 (9.4-12.4) fL Immature Gran % (Auto) 0.2 % Neut % (Auto) 67.2 % Lymph % (Auto) 21.4 % Jackson % (Auto) 10.2 % Eos % (Auto) 0.2 % Baso % (Auto) 0.8 % Neut # (Auto) 3.29 (1.40-6.50) K/uL Lymph # (Auto) 1.05 L (1.20-3.40) K/uL Jackson # (Auto) 0.50 (0.11-0.59) K/uL Eos # (Auto) 0.01 (0.00-0.50) K/uL Baso # (Auto) 0.04 (0.00-0.20) K/uL Immature Gran # (Auto) 0.01 (0.01-0.20) K/uL Sodium 135 L (136-145) mmol/L Potassium 3.5 (3.5-5.1) mmol/L Chloride 101 (98-107) mmol/L Carbon Dioxide 29 (21-32) mmol/L Anion Gap 5 (3-11) BUN 10 (6-23) mg/dl Creatinine 0.68 (0.6-1.2) mg/dl Est Cr Clr Drug Dosing 53.4 ml/min Est GFR ( Amer) 102.7 ml/min Est GFR (Non-Af Amer) 88.6 ml/min BUN/Creatinine Ratio 14.7 (10-20) Glucose 90 (70-99(Fasting)) mg/dl Calcium 9.1 (8.6-10.3) mg/dl Total Bilirubin 0.9 (0.2-1.0) mg/dl AST 17 (13-39) U/L ALT 12 (7-52) U/L Alkaline Phosphatase 31 L (34-104) U/L Total Protein 7.3 (6.0-8.3) gm/dl Albumin 4.4 (3.4-5.0) gm/dl Globulin 2.9 (2.5-4.0) gm/dl Albumin/Globulin Ratio 1.5 (0.9-2) TSH 0.507 (0.300-4.500) uIu/ml Urine Color Yellow Urine Appearance Clear (Clear) Urine pH 7.0 (4.5-7.5) Ur Specific [place] 1.008 (1.000-1.030) Urine Protein Negative (Negative) Urine Glucose (UA) Negative (Negative) Urine Ketones Negative (Negative) Urine Blood Trace H (Negative) Urine Nitrite Negative (Negative) Urine Bilirubin Negative (Negative) Urine Urobilinogen Negative (Negative) Ur Leukocyte Esterase Negative (Negative) Urine WBC (Auto) 0 (0-5) /hpf Urine RBC (Auto) 0-4 (0-4) /hpf U Hyaline Cast (Auto) 0 (0-5) /lpf U Epithel Cells (Auto) 0-5 (0-5) /lpf Urine Bacteria (Auto) Negative (Negative) Salicylates < 3.0 L (3.0-30) mg/dl Urine Opiates Screen Neg (Neg) Ur Methadone, Qual Neg (Neg) Acetaminophen < 3 L (10-30) ug/ml Urine Barbiturates Neg (Neg) Ur Phencyclidine (PCP) Neg (Neg) U Amphetamin/Meth Scrn Neg (Neg) MDMA (Ecstasy) Screen Neg (Neg) U Benzodiazepines Scrn Neg (Neg) Ur Cocaine Metabolite Neg (Neg) U Marijuana (THC) Screen Neg (Neg) Ethyl Alcohol mg/dL < 10.0 (<10.0) mg/dl Coding Level of Care Code 01427 U Intl Hosp Care Lvl 2 Diagnoses Altered mental status R41.82
[2023-02-14] MEDS ORDERED: OLANZapine 10 MG/2.1 ML SDV IM PRN (15:32)
--- NOTE | 2023-02-14 15:52 | History & Physical Report ---
Date of Service February 14, 2023 Assessment & Plan (1) Memory problem: Plan: Patient is uncertain of why she came to the ED; she reportedly says she was here for an appointment Patient appears anxious, repeatedly walks out of rooms Clinically, patient endorses ongoing difficulty with word finding, confusion, and some memory deficits She denies past medical history of CVA UA negative Tox screen negative Electrolytes WNL Glucose WNL at 90 TSH WNL No leukocytosis; afebrile Head CT revealed NAF We will try to obtain brain MRI if patient is amenable Olanzapine 2.5 mg IM as needed for agitation; please try to use olanzapine 2.5 mg ODT as first option 1:1 observation Psychiatry consulted A.m. CBC, BMP, mag (2) Vitamin B12 deficiency: Plan: Continue vitamin B12 (3) Hypothyroidism: Plan: Continue levothyroxine Plan Disposition: Ad[facility] to [facility] telemetry 1:1 precautions Full code Regular diet VTE PPx: Teds Admission and Anticipated Discharge Date Admission Date: Patient seen and examined, chart reviewed, case discussed with Charles Cortez assessment and plan as above except as otherwise noted Labs and images reviewed Lucille is a 72-year-old female who presents with altered mental status. She did drive to the ER, reports history of anxiety was pending an evaluation of potential dementia versus metabolic encephalopathy as an outpatient. While in the ER she is extremely confused although without infectious or metabolic derangements. Suspected patient may have progressing Alzheimer's dementia. At time of assessment she is not oriented to place, year, and is not able to verbal ize otherwise she was in the hospital order/benefits of leaving little on driving with her level of confusion. She is not with SI/HI, but also does not have capacity to leave at time of assessment. Psychiatry consulted, appreciate recommendations. Lungs are clear, no signs of cellulitis, do not suspect UTI. Agree with management above. Continue one-to-one precautions History of Present Illness Chief Complaint: Mental health evaluation Primary Care Provider: Anita Navas MD Lucille is a 72-year-old female with PMH of hypothyroidism, Mnire's disease, osteoporosis, depression, vitamin B12 deficiency, and memory problems. She pr esented for a mental health evaluation. She reportedly drove herself to the ED for an appointment, and has been depressed for the past year and a half. She states she is not in any pain. She is very anxious about being in the hospital, and is not entirely sure why she is here, but may have been sent in by her PCP Dr. Navas for a brain MRI. She endorses that she has been having ongoing difficulties with word finding, as well as confusion and some memory deficits. Patient exhibits mild hypertension at 159/85; vitals otherwise stable. ROS: Patient endorses difficulty with word finding, urinary difficulties, and some confusion and memory deficits. Patient denies fever, chills, night sweats, chest pain, shortness of breath, pleuritic CP, cough, abdominal pain, N/V/D, or numbness or tingling in the legs. Allergies Allergy/AdvReac Type Severity Reaction Status Date / Time bee venom protein (honey bee) Allergy Severe Anaphylaxis Verified 02/14/23 12:53 Penicillins Allergy Mild PT DOES Verified 02/14/23 12:53 NOT REMEMBER REACTION house dust Allergy Unknown Unknown Verified 02/14/23 12:53 perfume Allergy Unknown Unknown Verified 02/14/23 12:53 meperidine AdvReac Mild GI UPSET Verified 02/14/23 12:53 coconut AdvReac Unknown Unknown Verified 02/14/23 12:53 feathers AdvReac Unknown Unknown Verified 02/14/23 12:53 grass pollen AdvReac Unknown Unknown Verified 02/14/23 12:53 mold AdvReac Unknown Unknown Verified 02/14/23 12:53 tree and shrub pollen AdvReac Unknown Unknown Verified 02/14/23 12:53 Animal dander Allergy Unknown Unknown Uncoded 02/14/23 12:53 Home Medications Medication Instructions Recorded Confirmed Type calcium citrate 315 mg 1 tab PO QAM 09/20/18 02/14/23 History calcium-vitamin D3 6.25 mcg (250 unit) tablet (Citracal + Vitamin D Maximum) levothyroxine 75 mcg tablet 75 mcg PO DAILY #90 tabs 10/18/22 02/14/23 Rx psyllium husk 0.4 gram capsule 0.4 g PO DAILY PRN Constipation 11/28/22 02/14/23 History (Daily Fiber) mecobalamin (vitamin B12) 1,000 1,000 mcg PO DAILY #90 tabs 01/12/23 02/14/23 Rx mcg chewable tablet alendronate 70 mg tablet 70 mg PO WK 02/14/23 02/14/23 History Past Med/Surg History Medical History Vitamin B12 deficiency Depression Junior's thyroiditis Osteoporosis treated with Prolia - transitioned to alendronate 01/01 Postmenopausal atrophic vaginitis Tubular adenoma Vitamin D deficiency Meniere's disease Hypothyroidism Surgical History History of cataract surgery left History of colonoscopy H/O dilation and curettage x2 Family History Mother Lung cancer Aunt Lung cancer Father Stroke Denies family history of Ovarian cancer Prostate cancer Myocardial infarction Breast cancer Colorectal cancer Social History Smoking Status: Never smoker Second Hand Exposure: No; Do You Dip or Chew Tobacco: No; Hx Alcohol Use: No Hx Substance Use: No Preferred Language: Khmer Communication Ability: confused Visual Impairment: No Limitations Hearing Ability: Hard of Hearing Director Of Health Education Required: No Beliefs That Will Affect Care: None marital status: Single Current Living Situation: Alone 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 Safe at Home: Yes Safety Concerns: Feels Safe At This Time Safety Concerns Comment: her neighbor has been causing her a lot of problems, "she is crazy." Childhood Exposure to Second-Hand Smoke: No Diet: regular Dental Care, Regularly: No Physical Activity Frequency: Daily Seatbelt Use: always Sunscreen Use: Yes Assistive Devices: Glasses Review of Systems Review of Systems: See HPI above Physical Exam Physical Exam: General: Anxious; difficulty articulating thoughts; cachectic; non-toxic appear ing HEENT: normocephalic, atraumatic; no scleral icterus; PERRLA w/ EOMs intact; dry mucus membrane; vision and hearing grossly intact Neck: supple; no JVD; no lymphadenopathy; trachea midline; patient does not endorse pain with shrugging/rotating neck Skin: warm, dry without signs of tenting; no cyanosis; no rashes, bruising, lesions, or erythema noted CV: chest wall NTP; RRR; S1/S2 normal; no murmurs/rubs/gallops; pulses intact and symmetric at radial, DP, and PT Lungs: no acute respiratory distress; symmetrical chest wall expansion; clear breath sounds across all lung art w/o adventitious sounds; no wheezing ABD: Soft, NTP; BS present; no rebound/guarding; no ascites; no distention; negative CVA tenderness MSK: no tics or fasciculations; no edema noted in the LEs b/l Neuro: Patient repeatedly walks out of room; confusion; expressive aphasia; difficulty with word finding; thought process noncoherent at times; sensation grossly intact in the LEs, UEs B/L Results & Data Results & Data Vital Signs (Past 12 Hours) Vital Signs Temp Pulse Pulse Resp BP BP Pulse Ox 02/14/23 12:18 84 18 159/85 H 98 02/14/23 08:40 36.5 C 86 20 167/87 H 99 O2 Del Method 02/14/23 12:18 Room Air 02/14/23 08:40 Room Air Laboratory Results Abnormal lab results 02/14/23 02/14/23 Range/Units 09:15 Unknown RBC 4.05 L (4.20-5.40) M/uL Hct 36.4 L (37.0-47.0) % Lymph # (Auto) 1.05 L (1.20-3.40) K/uL Sodium 135 L (136-145) mmol/L Alkaline Phosphatase 31 L (34-104) U/L Urine Blood Trace H (Negative) Salicylates < 3.0 L (3.0-30) mg/dl Acetaminophen < 3 L (10-30) ug/ml Diagnostic Findings Head CT 02/14/23 12:14 CT SCAN OF THE BRAIN WITHOUT IV CONTRAST CLINICAL HISTORY: Change in mental status. COMPARISON STUDY: CT of the brain dated 04/09/2013. TECHNIQUE: Unenhanced axial CT scan of the brain is performed from the vertex to the skull base. A dose lowering technique was utilized adhering to the principles of ALARA. CT DOSE: 625.8 mGy.cm FINDINGS: Brain parenchyma: There is age-related involutional change noting [id number] subcortical and periventricular microangiopathic disease. There is no hemorrhage, mass effect, or evidence of acute territorial ischemia by CT criteria. Pugh-white matter differentiation is preserved. No extra-axial fluid collection is seen. Ventricles, sulci, cisterns: Prominent secondary to involutional change. Intracranial vasculature: There is atherosclerotic calcification of the cavernous carotid arteries. Calvarium: Unremarkable. Sinuses and mastoids: The visualized paranasal sinuses are clear. The mastoid air cells are well pneumatized. Orbits: The bony orbits are grossly intact. There are bilateral ocular lens implants. IMPRESSION: There is no hemorrhage, mass effect, or evidence of acute territorial ischemia by CT criteria. ACT 112: Negative or not required by law. Electronically signed by: Vick Hernandez M.D. 02/14/2023 1:07 PM Code Status & VTE Plan Code Status Full code VTE Prophylaxis Plan VTE Prophylaxis will be ordered: Yes PG Care Time/CCT Total # of Minutes Spent Total Time Spent with Patient: Total time spent is greater than 50% in coordination of care (as documented) at patient's floor/unit and/or counseling patient: C[place] [address] INT INP/OBS CARE 3/75MIN Patient Type Established Medical Decision Making Moderate Complexity Diagnoses Memory problem R41.3 Vitamin B12 deficiency E53.8 Hypothyroidism E03.9
[2023-02-14] MEDS ORDERED: OLANZapine ZYDIS 5 MG ORALLY DIS. TAB PO PRN ×2 (17:12→21:50)
[2023-02-14 17:25] LABS: Magnesium 2.4 mg/dl (1.7-2.4)
[2023-02-14] MEDS ORDERED: ACETAMINOPHEN 325 MG TAB PO PRN (20:55)
--- NOTE | 2023-02-14 23:07 | Magnetic Resonance Report ---
Exam(s): MRI HEAD Without Contrast EXAM: MR Head Without Intravenous Contrast CLINICAL HISTORY: Reason for exam: Word finding difficulty, confusion, mem deficits. TECHNIQUE: Magnetic resonance images of the head/brain without intravenous contrast in multiple planes. COMPARISON: CT head 02/14/2023.. FINDINGS: Brain: Age-appropriate central and peripheral atrophy. Moderate degree of supratentorial periventricular and subcortical white matter hyperintensities on FLAIR and T2-weighted images. No hemorrhage. No acute infarct. No abnormal extra-axial fluid collection. Ventricles: No midline shift. No ventriculomegaly. Bones/joints: Unremarkable. No acute fracture. Sinuses: Unremarkable as visualized. No acute sinusitis. Mastoid air cells: Unremarkable as visualized. No mastoid effusion. Orbits: Unremarkable as visualized. IMPRESSION: 1. No acute stroke or hemorrhage. 2. Nonspecific white matter changes most commonly seen with small vessel disease. Electronically signed by: Greg Enegl M.D. 02/14/23 23:06 PM
[2023-02-15] MEDS: LEVOTHYROXINE SODIUM 75 MCG TABLET PO SCH (06:32)
[2023-02-15 07:08] LABS: Basophils # (auto) 0.04 K/uL (0.00-0.20); Basophils % (auto) 0.8 %; Eosinophils # (auto) 0.02 K/uL (0.00-0.50); Eosinophils % (auto) 0.4 %; Hemoglobin 13.6 g/dl (12.0-16.0); Immature Granulocytes # (auto) 0.01 K/uL (0.01-0.20); Immature Granulocytes % (auto) 0.2 %; Lymphocytes # (auto) 1.23 K/uL (1.20-3.40); Lymphocytes % (auto) 23.3 %; Mean Corpuscular Hemoglobin 30.1 pg (25.0-34.0); Mean Corpuscular Hgb Conc 33.2 g/dL (32.0-36.0); Mean Corpuscular Volume 90.7 fL (80.0-100.0); Mean Platelet Volume 9.8 fL (9.4-12.4); Monocytes # (auto) 0.61 K/uL (0.11-0.59); Monocytes % (auto) 11.6 %; Neutrophils # (auto) 3.36 K/uL (1.40-6.50); Neutrophils % (auto) 63.7 %; Platelet Count 277 K/uL (130-400); RDW Coefficient of Variation 12.3 % (11.5-14.5); RDW Standard Deviation 40.8 fL (36.4-46.3); Red Blood Count 4.52 M/uL (4.20-5.40); White Blood Count 5.27 K/ul (4.8-10.8)
[2023-02-15 07:24] LABS: BUN Creatinine Ratio 14.3 (10-20); Calcium 9.3 mg/dl (8.6-10.3); Creatinine Clr Calc Pharmacy 57.6 ml/min; Est GFR (African American) 105.3 ml/min; Est GFR (Non-African American) 90.9 ml/min; Magnesium 2.4 mg/dl (1.7-2.4); Potassium 3.6 mmol/L (3.5-5.1)
[2023-02-15] MEDS: CYANOCOBALAMIN (B-12) 500 MCG TABLET PO SCH (09:40)
--- NOTE | 2023-02-15 11:26 | Hospitalist Progress Note ---
Date of Service February 15, 2023 Assessment & Plan (1) Memory problem: Plan: - Patient is uncertain of why she came to the ED; she reportedly says she was here for an appointment -Patient endorses ongoing difficulty with word finding, confusion, and some memory deficits x5 months -PCP notes reviewed, failed Mini Cognitive test 01/12. -Workup so far has included the following which have been negative/WNL: -Tox screen, electrolytes, TSH -CT head: no acute findings -MRI brain: no acute finding, nonspecific white matter changes -Olanzapine 2.5 mg IM as needed for agitation; please try to use olanzapine 2.5 mg ODT as first option -1:1 observation Psychiatry consulted -Dr. Del Cid spoke with Dr. Diaz and would not recommend starting antidepressant at this time -Check Vit B12, B1, CRP and ESR -CM following, will need placement -NikolaysinSadia ALLA -PT/OT (2) Vitamin B12 deficiency: Plan: Continue vitamin B12 (3) Hypothyroidism: Plan: Continue levothyroxine 02/14 TSH: 0.507 Plan Disposition: Admit to [facility] 1:1 precautions VTE PPx: Teds Admission and Anticipated Discharge Date Admission Date: February 14, 2023 Supervising Physician Co-Signing Physician Notes Attending Attestation - Chart reviewed, care plan d/w ANIYA Valdovinos. I agree with the peres components of her documentation. David Del Cid MD Subjective [id number] - Patient seen sitting in the chair. Alert to self, but unable to tell me where we are, just [facility]. Unsure of her address, or where she gets her groceries. Is very worried about her car in the parking lot. 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 She does tell me she would be willing to live somewhere safe in the [facility] ([facility] previously mentioned in PCP notes), near her brother or near Sadia. Does admit to me that she has trouble getting words out and "when she gets mad she gets confused" that has been going on for 5+ month. No physical complaints besides being cold. Review of Systems Review of Systems: All systems reviewed & are unremarkable except as noted in Subjective Physical Exam Physical Exam: General: WN/WD, NAD, VS as above Resp: normal respiratory effort, lungs clear to auscultation CV: RRR, no murmur, no edema Abd: n non tender, no hepatosplenomegaly Extremities: Moves all extremities, no edema Neuro: A&O x1, tangential speech Skin: intact, no lesions noted Results & Data Results & Data Vital Signs (Past 12 Hours) Vital Signs Temp Pulse Resp BP Pulse Ox O2 Del Method 02/15/23 04:22 36.6 C 80 18 147/63 H 98 Room Air Laboratory Results CBC and BMP reviewed Diagnostic Findings Head CT 02/14/23 12:14 CT SCAN OF THE BRAIN WITHOUT IV CONTRAST CLINICAL HISTORY: Change in mental status. COMPARISON STUDY: CT of the brain dated 04/09/2013. TECHNIQUE: Unenhanced axial CT scan of the brain is performed from the vertex to the skull base. A dose lowering technique was utilized adhering to the principles of ALARA. CT DOSE: 625.8 mGy.cm FINDINGS: Brain parenchyma: There is age-related involutional change noting plqs-bn-bewabkiy subcortical and periventricular microangiopathic disease. There is no hemorrhage, mass effect, or evidence of acute territorial ischemia by CT criteria. Pugh-white matter differentiation is preserved. No extra-axial fluid collection is seen. Ventricles, sulci, cisterns: Prominent secondary to involutional change. Intracranial vasculature: There is atherosclerotic calcification of the cavernous carotid arteries. Calvarium: Unremarkable. Sinuses and mastoids: The visualized paranasal sinuses are clear. The mastoid air cells are well pneumatized. Orbits: The bony orbits are grossly intact. There are bilateral ocular lens implants. IMPRESSION: There is no hemorrhage, mass effect, or evidence of acute territorial ischemia by CT criteria. ACT 112: Negative or not required by law. Electronically signed by: Vick Hernandez M.D. 02/14/2023 1:07 PM Brain MRI 02/14/23 17:36 Exam(s): MRI HEAD Without Contrast EXAM: MR Head Without Intravenous Contrast CLINICAL HISTORY: Reason for exam: Word finding difficulty, confusion, mem deficits. TECHNIQUE: Magnetic resonance images of the head/brain without intravenous contrast in multiple planes. COMPARISON: CT head 02/14/2023.. FINDINGS: Brain: Age-appropriate central and peripheral atrophy. Moderate degree of supratentorial periventricular and subcortical white matter hyperintensities on FLAIR and T2-weighted images. No hemorrhage. No acute infarct. No abnormal extra-axial fluid collection. Ventricles: No midline shift. No ventriculomegaly. Bones/joints: Unremarkable. No acute fracture. Sinuses: Unremarkable as visualized. No acute sinusitis. Mastoid air cells: Unremarkable as visualized. No mastoid effusion. Orbits: Unremarkable as visualized. IMPRESSION: 1. No acute stroke or hemorrhage. 2. Nonspecific white matter changes most commonly seen with small vessel disease. Electronically signed by: Greg Engel M.D. 02/14/23 23:06 PM PG Care Time/CCT Total # of Minutes Spent Total Time Spent with Patient: Total time spent is greater than 50% in coordination of care (as documented) at patient's floor/unit and/or counseling patient: Coding Level of Care Code 58504 SUB INP/OBS CARE 2/35MIN Diagnoses Memory problem R41.3 Vitamin B12 deficiency E53.8 Hypothyroidism E03.9
--- NOTE | 2023-02-15 15:05 | Communication Note ---
Date of Service: February 15, 2023 case discussed briefly with Dr. Del Cid as patient now admitted medically and initial consult was for capacity to leave ED. Diagnostic impression remains p rimary dementia but questioned possible retrial of an SSRI given clinic notes indicating depression. Reiterated that patient presented to ED with confusion, appears to have preference to avoid antidepressants and symptoms are rathe non specific and mainly tied to living alone in her condo and having a harder time relating to neighbors/caring for self (which are also attributable to dementia). Presentation more consistent with major cognitive disorder rather than pseudodementia and would suggest determining patient's living environment and who will be managing medications before any retrial of Lexapro (doesn't appear that took consistently, etc).
[2023-02-16] MEDS: LEVOTHYROXINE SODIUM 75 MCG TABLET PO SCH (06:01)
[2023-02-16] MEDS: CYANOCOBALAMIN (B-12) 500 MCG TABLET PO SCH (08:56)
--- NOTE | 2023-02-16 11:47 | Hospitalist Progress Note ---
Date of Service February 16, 2023 Assessment & Plan (1) Memory problem: Plan: - Patient is uncertain of why she came to the ED; she reportedly says she was here for an appointment -Patient endorses ongoing difficulty with word finding, confusion, and some memory deficits x5 months -PCP notes reviewed, failed Mini Cognitive test 01/12. -Workup so far has included the following which have been negative/WNL: -Tox screen, electrolytes, TSH, B12, CRP, ESR -CT head: no acute findings -MRI brain: no acute finding, nonspecific white matter changes -Vit B1 level pending -Olanzapine 2.5 mg IM as needed for agitation; please try to use olanzapine 2.5 mg ODT as first option Psychiatry consulted --> suspect major cognitive disorder -CM following, will need placement -Estrella, SadiaALLA - Sadia and Roland (brother) looking at facilities in [place] -PT/OT for placement purposes (2) Vitamin B12 deficiency: Plan: Continue vitamin B12 (3) Hypothyroidism: Plan: Continue levothyroxine 02/14 TSH: 0.507 Plan Disposition: continued inpatient stay until have safe placement VTE PPx: Teds Admission and Anticipated Discharge Date Admission Date: February 14, 2023 Supervising Physician Co-Signing Physician Notes Attending Attestation - Chart reviewed, care plan d/w ANIYA Valdovinos. I agree with the peres components of her documentation. David Del Cid MD Subjective Patient seen standing in her room. Reports stress because it is her birthday and "people wouldnt let this happen". Continues to be very disoriented. Having trouble recalling Sadia's name today. only complaint that she is able to express is that she did not have a BM yesterday or this morning. Denies having pain anywhere. Review of Systems Review of Systems: Unobtainable due to cognitive status Physical Exam Physical Exam: General: WN/WD, mild distress - rummaging through belonging , VS as above Resp: normal respiratory effort, lungs clear to auscultation CV: RRR, no murmur, no edema Extremities: Moves all extremities, no edema Neuro: Alert, oriented to self only, tangential speech Results & Data Results & Data Vital Signs (Past 12 Hours) Vital Signs Temp Pulse Resp BP Pulse Ox O2 Del Method 02/16/23 07:08 36.5 C 72 16 140/70 98 Room Air PG Care Time/CCT Total # of Minutes Spent Total Time Spent with Patient: Total time spent is greater than 50% in coordination of care (as documented) at patient's floor/unit and/or counseling patient: Coding Level of Care Code 02478 SUB INP/OBS CARE 1/25MIN Diagnoses Memory problem R41.3 Vitamin B12 deficiency E53.8 Hypothyroidism E03.9
[2023-02-17] MEDS: LEVOTHYROXINE SODIUM 75 MCG TABLET PO SCH (05:42)
[2023-02-17] MEDS: POLYETHYLENE (MIRALAX) 17 GM PACK PO PRN (05:42)
[2023-02-17] MEDS: CYANOCOBALAMIN (B-12) 500 MCG TABLET PO SCH (08:23)
--- NOTE | 2023-02-17 12:22 | Hospitalist Progress Note ---
Date of Service February 17, 2023 Assessment & Plan (1) Memory problem: Plan: - Patient is uncertain of why she came to the ED; she reportedly says she was here for an appointment -Patient endorses ongoing difficulty with word finding, confusion, and some memory deficits x5 months -PCP notes reviewed, failed Mini Cognitive test 01/12. -Workup so far has included the following which have been negative/WNL: -Tox screen, electrolytes, TSH, B12, CRP, ESR -CT head: no acute findings -MRI brain: no acute finding, nonspecific white matter changes -Vit B1 level pending -Olanzapine 2.5 mg IM as needed for agitation; please try to use olanzapine 2.5 mg ODT as first option Psychiatry consulted --> suspect major cognitive disorder -CM following, will need placement -Sadia De La Rosa POA - Rita and Roland (brother) looking at facilities in [place] -PT/OT for placement purposes (2) Vitamin B12 deficiency: Plan: Continue vitamin B12 (3) Hypothyroidism: Plan: Continue levothyroxine 02/14 TSH: 0.507 Plan Disposition: continued inpatient stay until have safe placement VTE PPx: Teds Admission and Anticipated Discharge Date Admission Date: February 14, 2023 Supervising Physician Co-Signing Physician Notes Attending Attestation - Chart reviewed, care plan d/w ANIYA Valdovinos. I agree with the peres components of her documentation. David Del Cid MD Subjective Patient seen wandering around her room. Continues to be oriented to self only, and very confused. She does report to me that she had a bowel movement this morning. Denies having pain anywhere. Review of Systems Review of Systems: Unobtainable due to cognitive status Physical Exam Physical Exam: General: WN/WD, NAD VS as above Resp: normal respiratory effort, lungs clear to auscultation CV: RRR, no murmur, no edema Extremities: Moves all extremities, no edema Neuro: Alert, oriented to self only, tangential speech Results & Data Results & Data Vital Signs (Past 12 Hours) Vital Signs Temp Pulse Resp BP Pulse Ox O2 Del Method 02/17/23 07:04 36.6 C 88 16 150/79 H 98 Room Air PG Care Time/CCT Total # of Minutes Spent Total Time Spent with Patient: Total time spent is greater than 50% in coordination of care (as documented) at patient's floor/unit and/or counseling patient: Coding Level of Care Code 20264 SUB INP/OBS CARE 04/05MIN Diagnoses Memory problem R41.3 Vitamin B12 deficiency E53.8 Hypothyroidism E03.9
[2023-02-18] MEDS: LEVOTHYROXINE SODIUM 75 MCG TABLET PO SCH (06:02)
[2023-02-18] MEDS: CYANOCOBALAMIN (B-12) 500 MCG TABLET PO SCH (07:46)
--- NOTE | 2023-02-18 12:29 | Hospitalist Progress Note ---
Date of Service February 18, 2023 Assessment & Plan (1) Memory problem: Plan: - Patient is uncertain of why she came to the ED; she reportedly says she was here for an appointment -Patient endorses ongoing difficulty with word finding, confusion, and some memory deficits x5 months -PCP notes reviewed, failed Mini Cognitive test 01/12. -Workup so far has included the following which have been negative/WNL: -Tox screen, electrolytes, TSH, B12, CRP, ESR -CT head: no acute findings -MRI brain: no acute finding, nonspecific white matter changes -Vit B1 level pending -Olanzapine 2.5 mg IM as needed for agitation; please try to use olanzapine 2.5 mg ODT as first option Psychiatry consulted --> suspect major cognitive disorder -CM following, will need placement -Estrella, ALLA Mccullough - Sadia and Roland (brother) looking at facilities in [place] -PT/OT for placement purposes (2) Vitamin B12 deficiency: Plan: Continue vitamin B12 (3) Hypothyroidism: Plan: Continue levothyroxine 02/14 TSH: 0.507 Plan Disposition: continued inpatient stay until have safe placement. No new case management updates in the chart. VTE PPx: Teds Admission and Anticipated Discharge Date Admission Date: February 14, 2023 Supervising Physician Co-Signing Physician Notes Attending Attestation - Chart reviewed, care plan d/w ANIYA Valdovinos. I agree with the peres components of her documentation. David Del Cid MD Subjective patient found wandering in the waller looking for Clean linen, easily redirected to her room. patient remains oriented only to self. states she has not talked to Sadia or Adam. However is asking if she is able to shower today Review of Systems Review of Systems: Unobtainable due to cognitive status Physical Exam Physical Exam: General: WN/WD, NAD VS as above Resp: normal respiratory effort, lungs clear to auscultation CV: RRR, no murmur, no edema Extremities: Moves all extremities, no edema Neuro: Alert, oriented to self only, tangential speech Results & Data Results & Data Vital Signs (Past 12 Hours) Vital Signs Temp Pulse Resp BP Pulse Ox O2 Del Method 02/18/23 07:43 36.8 C 90 16 131/76 97 Room Air PG Care Time/CCT Total # of Minutes Spent Total Time Spent with Patient: Total time spent is greater than 50% in coordination of care (as documented) at patient's floor/unit and/or counseling patient: Coding Level of Care Code 07575 SUB INP/OBS CARE 04/05MIN Diagnoses Memory problem R41.3 Vitamin B12 deficiency E53.8 Hypothyroidism E03.9
[2023-02-19] MEDS: LEVOTHYROXINE SODIUM 75 MCG TABLET PO SCH (05:43)
[2023-02-19] MEDS: CYANOCOBALAMIN (B-12) 500 MCG TABLET PO SCH (08:02)
--- NOTE | 2023-02-19 13:10 | Hospitalist Progress Note ---
Date of Service February 19, 2023 Assessment & Plan (1) Memory problem: Plan: Likely dementia - Patient is uncertain of why she came to the ED; she reportedly says she was here for an appointment -Patient endorses ongoing difficulty with word finding, confusion, and some memory deficits x5 months -PCP notes reviewed, failed Mini Cognitive test 01/12. -Workup so far has included the following which have been negative/WNL: -Tox screen, electrolytes, TSH, B12, CRP, ESR -CT head: no acute findings -MRI brain: no acute finding, nonspecific white matter changes -Vit B1 level pending -Olanzapine 2.5 mg IM as needed for agitation; please try to use olanzapine 2.5 mg ODT as first option Psychiatry consulted --> suspect major cognitive disorder -CM following, will need placement -CousinSadia POA - Sadia and Roland (brother) looking at facilities in [place] -PT/OT for placement purposes (2) Vitamin B12 deficiency: Plan: Continue vitamin B12 (3) Hypothyroidism: Plan: Continue levothyroxine 02/14 TSH: 0.507 (4) Underweight: Plan: Underweight, BMI 16.1 kg/m*m/, moderate protein-calorie malnutrition -nutrition supplements ordered Plan Disposition: continued inpatient stay until have safe placement. VTE PPx: Teds Admission and Anticipated Discharge Date Admission Date: February 14, 2023 Supervising Physician Co-Signing Physician Notes Attending Attestation - Chart reviewed, care plan d/w ANIYA Valdovinos. I agree with the peres components of her documentation. David Del Cid MD Subjective patient seen sitting in her room. Continues to be oriented only to self. Tells me she has not spoken to Sadia or Adam. Denies any pain at this time I spoke with ALLA Mccullough, over the the phone. States that she thought that he was going to come [place] this weekend and take her to a facility in [facility]. Sadia has not spoken to Adam since Sunday. Sadia is in the process of talking to the director enterprise data architecture and to Adam to figure out next steps. Informed Sadia of patient's medical state and diagnoses. Case management updated Review of Systems Review of Systems: Unobtainable due to cognitive status Physical Exam Physical Exam: General: WN/WD, NAD VS as above Resp: normal respiratory effort, lungs clear to auscultation CV: RRR, no murmur, no edema Extremities: Moves all extremities, no edema Neuro: Alert, oriented to self only, tangential speech Results & Data Results & Data Vital Signs (Past 12 Hours) Vital Signs Temp Pulse Resp BP Pulse Ox O2 Del Method 02/19/23 08:12 Room Air 02/19/23 07:21 36.7 C 84 16 145/78 H 97 Room Air PG Care Time/CCT Total # of Minutes Spent Total Time Spent with Patient: Total time spent is greater than 50% in coordination of care (as documented) at patient's floor/unit and/or counseling patient: Coding Level of Care Code 07742 SUB INP/OBS CARE 2/35MIN Diagnoses Memory problem R41.3 Vitamin B12 deficiency E53.8 Hypothyroidism E03.9 Underweight R63.6
[2023-02-20] MEDS: LEVOTHYROXINE SODIUM 75 MCG TABLET PO SCH (05:13)
[2023-02-20] MEDS: CYANOCOBALAMIN (B-12) 500 MCG TABLET PO SCH (08:19)
--- NOTE | 2023-02-20 11:36 | Hospitalist Progress Note ---
Date of Service February 20, 2023 Assessment & Plan (1) Memory problem: Plan: Likely dementia - Patient is uncertain of why she came to the ED; she reportedly says she was here for an appointment -Patient endorses ongoing difficulty with word finding, confusion, and some memory deficits x5 months -PCP notes reviewed, failed Mini Cognitive test 01/12. -Workup so far has included the following which have been negative/WNL: -Tox screen, electrolytes, TSH, B12, CRP, ESR, WNL -CT head: no acute findings -MRI brain: no acute finding, nonspecific white matter changes -Olanzapine 2.5 mg ODT as needed for agitation; Psychiatry consulted --> suspect major cognitive disorder, would not start SSRI -CM following, will need placement -Sadia De La Rosa POA - Rita and Roland (brother) looking at facilities in [place] -PT/OT for placement purposes (2) Vitamin B12 deficiency: Plan: Continue vitamin B12 (3) Hypothyroidism: Plan: Continue levothyroxine 02/14 TSH: 0.507 (4) Underweight: Plan: Underweight, BMI 16.1 kg/m*m/, moderate protein-calorie malnutrition -nutrition supplements ordered Plan Disposition: continued inpatient stay until have safe placement. VTE PPx: Teds Admission and Anticipated Discharge Date Admission Date: February 14, 2023 Subjective patient remains pleasantly confused. Continues to be alert only to self, on exam she is sitting at her table eating breakfast, has no physical complaints for me. Does wish to leave the hospital - I reassured her we are trying to find her a safe place to go Review of Systems Review of Systems: Unobtainable due to cognitive status Physical Exam Physical Exam: General: WN/WD, NAD VS as above Resp: normal respiratory effort, lungs clear to auscultation CV: RRR, no murmur, no edema Extremities: Moves all extremities, no edema Neuro: Alert, oriented to self only, tangential speech Results & Data Results & Data Vital Signs (Past 12 Hours) Vital Signs Temp Pulse Resp BP Pulse Ox O2 Del Method 02/20/23 07:14 36.5 C 73 18 123/72 98 Room Air PG Care Time/CCT Total # of Minutes Spent Total Time Spent with Patient: Total time spent is greater than 50% in coordination of care (as documented) at patient's floor/unit and/or counseling patient: Coding Level of Care Code 60424 SUB INP/OBS CARE 04/05MIN Diagnoses Memory problem R41.3 Vitamin B12 deficiency E53.8 Hypothyroidism E03.9 Underweight R63.6
[2023-02-21] MEDS: LEVOTHYROXINE SODIUM 75 MCG TABLET PO SCH (05:35)
[2023-02-21] MEDS: CYANOCOBALAMIN (B-12) 500 MCG TABLET PO SCH (07:56)
--- NOTE | 2023-02-21 08:50 | Hospitalist Progress Note ---
Date of Service February 21, 2023 Assessment & Plan (1) Memory problem: Plan: Likely dementia - Patient is uncertain of why she came to the ED; she reportedly says she was here for an appointment -Patient endorses ongoing difficulty with word finding, confusion, and some memory deficits x5 months -PCP notes reviewed, failed Mini Cognitive test 01/12. -Workup so far has included the following which have been negative/WNL: -Tox screen, electrolytes, TSH, B12, CRP, ESR -CT head: no acute findings -MRI brain: no acute finding, nonspecific white matter changes -Vit B1 level pending -Olanzapine 2.5 mg IM as needed for agitation; please try to use olanzapine 2.5 mg ODT as first option Psychiatry consulted --> suspect major cognitive disorder -CM following, will need placement -Nikolaysin, ALLA Mccullough - Sadia and Roland (brother) looking at facilities in [facility] was to take patient over the weekend. Adam being attempted to be contacted for discussion as patient medically stable -PT/OT for placement purposes 02/21 -- Has clothes from family, reports they are selling her house and finding new place to live. CM following/hopefully able to reach brother Roland about placement/facilities in [facility] reported this past week (2) Vitamin B12 deficiency: Plan: Continue vitamin B12 (3) Hypothyroidism: Plan: 02/14 TSH: 0.507 Continue levothyroxine (4) Underweight: Plan: Underweight, BMI 16.1 kg/m*m/, moderate protein-calorie malnutrition -nutrition supplements ordered , reports good appetite Plan Disposition: continued inpatient stay until have safe placement. VTE PPx: Junior Admission and Anticipated Discharge Date Admission Date: February 14, 2023 Subjective Evaluated this morning, walking around the room. Reports family dropped off clothing for her which she is thankful as she's been wearing the same clothes for a while. Eating/drinking, ambulating in the room without issue. She [place] but that they are selling her house and finding a new place. She states she knows where she is but is unable to come up with the name. Inquiring if cornelius has happened yet. Pleasant confusion. Physical Exam Physical Exam: General: WN/WD, NAD walking around the room, dressed, clothes at bedside Resp: normal respiratory effort, lungs clear to auscultation CV: RRR, no murmur, no edema Extremities: Moves all extremities, no edema Neuro: Alert, oriented to self only, knows in hospital/they are selling her house, but speech tangential Results & Data Results & Data Vital Signs (Past 12 Hours) Vital Signs Temp Pulse Resp BP Pulse Ox O2 Del Method 02/21/23 07:28 36.5 C 79 16 129/74 97 Room Air 02/20/23 22:10 36.5 C 86 16 128/77 97 Room Air PG Care Time/CCT Total # of Minutes Spent Total Time Spent with Patient: Total time spent is greater than 50% in coordination of care (as documented) at patient's floor/unit and/or counseling patient: Coding Level of Care Code 56977 SUB INP/OBS CARE 04/05MIN Diagnoses Memory problem R41.3 Vitamin B12 deficiency E53.8 Hypothyroidism E03.9 Underweight R63.6
[2023-02-22] MEDS: LEVOTHYROXINE SODIUM 75 MCG TABLET PO SCH (06:05)
[2023-02-22] MEDS: CYANOCOBALAMIN (B-12) 500 MCG TABLET PO SCH (07:33)
--- NOTE | 2023-02-22 08:13 | Hospitalist Progress Note ---
Date of Service February 22, 2023 Assessment & Plan (1) Memory problem: Plan: Likely dementia Patient is uncertain of why she came to the ED; she reportedly says she was here for an appointment Patient endorses ongoing difficulty with word finding, confusion, and some memory deficits x5 months PCP notes reviewed, failed Mini Cognitive test 01/12. Workup so far has included the following which have been negative/WNL: -Tox screen, electrolytes, TSH, B12, CRP, ESR -CT head: no acute findings -MRI brain: no acute finding, nonspecific white matter changes Vit B1 level NOT deficient. B12 low normal, replacement ordered Olanzapine 2.5 mg IM as needed for agitation; please try to use olanzapine 2.5 mg ODT as first option Psychiatry consulted --> suspect major cognitive disorder CM following, will need placement -[facility], [facility] - Sadia and Roland (brother) looking at facilities in [facility] was to take patient over the weekend. Adam being attempted to be contacted for discussion as patient medically stable PT/OT for placement purposes 02/21- Has clothes from family, reports they are selling her house and finding new place to live. CM following/hopefully able to reach brother Roland about placement/facilities in [facility] reported this past week 02/22 Patient dressed/ambulating the halls. Talked w/ brother Adam on phone, very upset with him and not taking care of things/still being stuck in the hospital. Appears to me she has significant component of anxiety/depression, possibly making memory/dementia issue WORSE. Discussed at length about trial of something like vistaril short term for anxiety symptoms vs SSRI as this may take time to be effective. She wants to hold off for now until she talks w/ Adam this afternoon after he speaks with traffic control operator. She is VERY frustrated about still being in the hospital and that something bad will happen as her brother "doesn't take care of anything". -- Continued discussions about vistaril/antidepressant to be undertaken. Could also consider remeron/something for appetite/weight gain as well but does report decent appetite Messaged psych about consultation for anxiety/depression -- appreciate additional recs/assistance Continued inpatient stay, CM following (2) Vitamin B12 deficiency: Plan: B12 182, low normal and placed on 1000mcg daily (3) Hypothyroidism: Plan: 02/14 TSH: 0.507 Continue levothyroxine (4) Underweight: Plan: Underweight, BMI 16.1 kg/m*m/, moderate protein-calorie malnutrition -nutrition supplements ordered , reports good appetite ? Remeron for mood/appetite. psych consulted as above Plan Disposition: continued inpatient stay until have safe placement.. CM following No evidence for DVT, has been ambulating the halls without issue. Admission and Anticipated Discharge Date Admission Date: February 14, 2023 Supervising Physician Co-Signing Physician Notes The patient was not seen by me. The chart was reviewed. Case discussed with ANIYA Vidal. Agree with assessment and plan Subjective Eval this morning, has been ambulating the halls, no acute distress. Wondering when she will be leaving, inquiring about diet menu/ordering. Support provided, CM following. Tearful, call from brother Adam in room. States he NEEDs to talk with traffic control operator, he states he is talking with one today. Cousin Sadia is POA. She notes at least her cousin visted last two days, Adam hasn't been in at all. She notes he doesnt take care of things and you have to be on top of him to get anything done. She is frustrated about continued inpatient stay, anxiety/depression. 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 Physical Exam Physical Exam: General: WN/WD, NAD walking around the room, dressed, clothes at bedside, tearful at times about being stuck here in the hospital/mad at her brother Resp: normal respiratory effort, lungs clear to auscultation CV: RRR, no murmur, no edema Extremities: Moves all extremities, no edema Neuro: Alert, oriented to self only, knows in hospital/they are selling her house, but speech tangential at times, forgetful/anxious about using the telephone Results & Data Results & Data Vital Signs (Past 12 Hours) Vital Signs Temp Pulse Resp BP Pulse Ox O2 Del Method 02/22/23 08:09 36.4 C L 83 18 128/66 97 Room Air 02/22/23 07:38 Room Air 02/21/23 21:32 36.7 C 85 18 123/67 98 Room Air 02/21/23 21:00 Room Air PG Care Time/CCT Total # of Minutes Spent Total Time Spent with Patient: Total time spent is greater than 50% in coordination of care (as documented) at patient's floor/unit and/or counseling patient: Coding Level of Care Code 11837 SUB INP/OBS CARE 2/35MIN Diagnoses Memory problem R41.3 Vitamin B12 deficiency E53.8 Hypothyroidism E03.9 Underweight R63.6
--- NOTE | 2023-02-22 16:38 | Psychiatric Consultation ---
Date of Consultation February 22, 2023 Impression / Recommendations Impression 02/22/2023: Pt who presented to the ED apparently having been living at home with no documented evidence of marked problems with self-care (based on appearance) but with growing concern on the part of her PCP about declining cognitive abilities. Workup since admission hasn't found much of note (though important aspects of dementia evaluations including functional brain imaging and neuropsychological assessment aren't available here). The consensus of treaters and family members seems to be that she requires placement in a structured living environment. I think it's unlikely that her moderate vitamin D deficiency is a significant contributor to her cognitive and reported mood problems, but it certainly could be contributing to both to some degree and should be addressed. Pt has evidenced anxiety and dysphoria, but I agree with Dr. Diaz's previous finding that this really seems primarily attributable to her being disoriented (and relatively aware of that) and uncertain about what her family, especially her brother Adam, are up to. I agree with Dr. Diaz that it seems very unlikely that she has severe enough mood or anxiety symptoms to be contributing to cognitive impairment ("pseudodementia") and that it's much more likely that cognitive impairment is driving some anxiety and dysphoria. Anxiolytics can be very problematic in cognitively-impaired patients: benzodiazepines are often deliriogenic and increase falls risk; antipsychotics increase falls risk and carry significant risk of cardiac side effects such as slowed conduction; and antihistamines are anticholinergic, which not only increases falls risk but can directly impair cognition. In light of pt's low BMI, a relatively low-risk antidepressant such as mirtazapine which tends to increase appetite and which often helps a bit with anxiety could be somewhat helpful. I would anticipate at most only a very modest potential clinical change as a result of any intervention aimed at mood or anxiety. In the absence of a diagnosis of a primary psychiatric disorder, a trial of even a fairly safe medication may not be warranted. There's little significant difference between my mental status exam and Dr. Diaz's a week ago, although I interpret her exam as showing a bit less impairment than mine. I certainly find no evidence of interval improvement. I see nothing to suggest a change from Dr. Diaz's finding that pt does not have the capacity to make rational and informed decisions about healthcare and about related personal care and safety issues such as whether she should drive (which she absolutely should not do) or where she can live safely (definitely not alone). I have not assessed formally other dimensions of capacity, such as testamentary or financial capacity to the extent that would allow me to provide a detailed opinion about them (nor would I really be able to do such a forensic assessment here given lack of access to crucial financial and other records). However, I do agree with the catalytic case operator's documented opinion that pt does not have the capacity to execute meadows of biomedical engineering internship or designate additional [id number]. i haven't been able to track down the power of biomedical engineering internship documents that pt's cousin was asked to submit, so don't know if they are limited to healthcare or include other meadows. In sum, I don't think my assessment today differs from Dr. Diaz's last week to any meaningful degree either in terms of my finding or in terms of my recommendations. Overall I spent a total of 89 minutes on the floor for this consultation assessment including review of chart records, review of test results, direct evaluation of the patient [id number], risk assessment, discussion with the psychiatric liaison nurse, and documentation in the electronic health record. 02/13/2023 (Dr Diaz): 72 yo female with progressive cognitive decline, presenting to ED with worsening disorientation. Although seems that she is caring for hygiene, no collateral information is available re: her functioning other than that of her outpatient provider who is concerned about dementia and recommending additional work up. Given that she has no idea where she is, cannot verbalize why she came here, hx of cognitive screening suggesting major cognitive disorder, I agree with Dr. Macario that it is unsafe for her to drive home and it is medically necessary she be monitored at [facility] for additional work up and pending safe disposition. Contributing factors to cognitive decline could include vitamin deficiency. (1) Major neurocognitive disorder: Plan 02/22/2023: * I concur with Dr. Diaz's opinion that pt lacks the capacity to make rational and informed medical decisions and that we need to seek substituted judgment from a surrogate previously designated by her in a durable power of biomedical engineering internship for healthcare. Fortunately, we've been in contact with one of the two individuals so designated, the other of whom appears not longer to be in contact with the family. * I can't determine fully whether pt has testamentary capacity, though I do believe she lacks capacity to execute a new DPOAH or designate a new [id number] (such as her brother) and it is very reasonable to question overall testamentary capacity. This has substantial real-world significance in that there are currently or soon will be multiple legal and financial instruments to sign (home sale, car sale, care facility contracts, etc.). I strongly suggest that the best course would be to have BOTH the patient and her [id number] sign any such documents (even if the surrogate only has healthcare meadows of biomedical engineering internship). * If you feel strongly that pt's worries and distress warrant a medication trial, mirtazapine 15 mg QHS might help and would likely be reasonably safe. 02/14/2023: She does not have capacity over her medical decision making at this time. In my medical opinion, there is no evidence of a primary psychiatric di sorder that would be causing her presentation and she therefore does not fall under 302 mental health law. Due to her cognitive disorder, she did seem to become more paranoid as questioning progressed and given time of day I suspect she may sundown outside of her normal home environment. If in need of emergency medication for ED or medical hold for acute agitation related to her dementia would start with Zyprexa 2.5 mg IM. Avoid benzos given age/fall risk and possible paradoxical effects. Suggest treating ED physician or hospitalist group reach out to legal and identify a surrogate medical decision maker HILARY. At the time I met with patient she was not agitated and was fine staying in the ED as long as "no one was going to my house" though she is very in the moment and her level of cooperation may change quickly. Psych History Identifying Data 72 yo female reportedly lives alone in [place]. Presented to ED with confusion, admitted on 02/14/2023 for AMS. Consult is by the hospitalist service for "anxiety/depression, ?capacity". Chief Complaint "I might be going senile". History of Present Illness As part of a thorough review of the available medical records, I have read and incorporated the following notes: Dr. Diaz's consultation note 02/13/2023: "Patient with no known psych history, difficult historian due to presumed major cognitive disorder. Outpatient notes from Dr. Navas note a mini-Cog assessment of 0 from last month. Patient is unable to state why she came to the ED or provide a chief complaint. She did arrive to triage with an order for a DEXA scan so it's possible given that she's disoriented that she thought it was the scheduled date. Although she is impeccably dressed and groomed and was initially cooperative with labs, she is now stating that she wants to leave, seems to believe that her car is unsafe in the parking lot. Had to be redirected several times re: recommendations for ongoing monitoring for her AMS and MRI/cognitive testing as recommended by outpatient. Case discussed with Dr. Macario as requiring frequent redirection with security to keep from wandering halls. The patient cannot mention buildings here by name, is unaware of date, when approached about the [facility] states "maybe tomorrow" to avoid being asked questions she can't answer. She is unable to list a single friend or local support and closest family is reportedly in [place]. Apparently denied psych hx but did tell triage nurse she felt more depressed past 1.5 months. Unclear what physical symptoms. No current office of aging involvement." Dr. Diaz's follow-up note 02/14/2023: "Diagnostic impression remains primary dementia but questioned possible retrial of an SSRI given clinic notes indicating depression. Reiterated that patient presented to ED with confusion, appears to have preference to avoid antidepressants and symptoms are rathe non specific and mainly tied to living alone in her condo and having a harder time relating to neighbors/caring for self (which are also attributable to dementia). Presentation more consistent with major cognitive disorder rather than pseudodementia and would suggest determining patient's living environment and who will be managing medications before any retrial of Lexapro (doesn't appear that took consistently, etc)." Review of the medical record reveals no previous or outside psychiatric records. Review of pertinent labs reveals they are fairly noncontributory though 25-OH vitamin D level on 01/10/2023 was in the deficient range at 24.3 ng/mL and vitamin B12 level was low at 171 pg/mL. The B12 has been rechecked after she was started on replenishment and is currently 182 pg/mL. It doesn't seem as if the vitamin D deficiency was addressed or that a level has been rechecked, though the deficiency is listed on her problem list. A urine toxicology screen was negative for all tested substrates. BAL was <10 mg/dL. Over the course of her admission, pt has evidenced distress relating to the significant life changes that are taking place rapidly around her. These include family's plans to sell her home so she can afford to move to an appropriate level of care, being told she should no longer be driving. After reading notes since admission, it really seems as if pt does not seem very distressed at baseline or when discussing quotidian topics such as holidays or weather but does become worried and dysphoric when talking about plans for moving, dealing with the sale of her home, reasons she can't return to her home, etc. Notes continue to reflect significant cognitive impairment, documenting for example the inability to obtain a useful ROS (on 02/20/2023) due to cognitive impairment, disorientation to time and place (most days), and disorientation to circumstances (consistently). Pt frequently voices her feeling that her cousin is reliable and that her brother is not, even though staff have typically been able to get in contact with one or the other (though often only with one and not both) and that it seems as if both have roughly equal distractions from their own lives and seem roughly equally to have been shouldering the load of helping her transition to new housing. On approach pt is cheerful, tells me she's "been trying to go to sleep all day" without success. Was chatting with the nurse ("am I going to see you again before the holidays?") but became anxious as soon as I asked any questions that called for a specific answer. She is oriented to person; "this place", "can't think of the town", "[place]", unable to categorize the place or to select from a list of 3 options ("is this a cafeteria, hospital, or bus stop?" "I think it's first one"); "twenty-something", "November", gives "the day of the week" as "grapes" (and repeats this when I reframe the question as "the weekday, like Sunday, Sunday..."). Answers most questions by saying she's "not sure what to say" or by asking me "is it good or bad?". Does not evidence awareness of any medical problems (though it might be fair to dinesh that she seems pretty health overall and that she may not objectively think of herself as having medical problems of note) other than that she "might be going senile". When asked what makes her think that, she says "sometimes I have trouble catching words". Upon further clarification it's clear that pt denies any hearing or comprehension difficult but rather means that she has trouble finding the words she wants. She says that she "used to literature a lot". Past Psychiatric History Previous Psych History: unclear - no known previous diagnosis Outpatient Services: none Previous Psych Admissions: none Allergies Allergy/AdvReac Type Severity Reaction Status Date / Time bee venom protein (honey bee) Allergy Severe Anaphylaxis Verified 02/14/23 12:53 Penicillins Allergy Mild PT DOES Verified 02/14/23 12:53 NOT REMEMBER REACTION house dust Allergy Unknown Unknown Verified 02/14/23 12:53 perfume Allergy Unknown Unknown Verified 02/14/23 12:53 meperidine AdvReac Mild GI UPSET Verified 02/14/23 12:53 coconut AdvReac Unknown Unknown Verified 02/14/23 12:53 feathers AdvReac Unknown Unknown Verified 02/14/23 12:53 grass pollen AdvReac Unknown Unknown Verified 02/14/23 12:53 mold AdvReac Unknown Unknown Verified 02/14/23 12:53 tree and shrub pollen AdvReac Unknown Unknown Verified 02/14/23 12:53 Animal dander Allergy Unknown Unknown Uncoded 02/14/23 12:53 Home Medications Medication Instructions Recorded Confirmed Type calcium citrate 315 mg 1 tab PO QAM 09/20/18 02/14/23 History calcium-vitamin D3 6.25 mcg (250 unit) tablet (Citracal + Vitamin D Maximum) levothyroxine 75 mcg tablet 75 mcg PO DAILY #90 tabs 10/18/22 02/14/23 Rx psyllium husk 0.4 gram capsule 0.4 g PO DAILY PRN Constipation 11/28/22 02/14/23 History (Daily Fiber) mecobalamin (vitamin B12) 1,000 1,000 mcg PO DAILY #90 tabs 01/12/23 02/14/23 Rx mcg chewable tablet alendronate 70 mg tablet 70 mg PO WK #12 tabs 02/22/23 Rx Patient History Medical History (Updated 02/22/23 @ 16:57 by Hammad Quigley MD) Major neurocognitive disorder Vitamin B12 deficiency Depression Junior's thyroiditis Osteoporosis treated with Prolia - transitioned to alendronate 01/01 Postmenopausal atrophic vaginitis Tubular adenoma Vitamin D deficiency Meniere's disease Hypothyroidism Surgical History History of cataract surgery left History of colonoscopy H/O dilation and curettage x2 Family History Mother Lung cancer Aunt Lung cancer Father Stroke Denies family history of Ovarian cancer Prostate cancer Myocardial infarction Breast cancer Colorectal cancer Social History Smoking Status: Never smoker Second Hand Exposure: No; Do You Dip or Chew Tobacco: No; Hx Alcohol Use: No Hx Substance Use: No Preferred Language: Frisian Communication Ability: confused Visual Impairment: No Limitations Hearing Ability: Hard of Hearing Extruding Press Operator Required: No Beliefs That Will Affect Care: None marital status: Single Current Living Situation: Alone 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 Safe at Home: Yes Safety Concerns: Feels Safe At This Time Safety Concerns Comment: her neighbor has been causing her a lot of problems, "she is crazy." Childhood Exposure to Second-Hand Smoke: No Diet: regular Dental Care, Regularly: No Physical Activity Frequency: Daily Seatbelt Use: always Sunscreen Use: Yes Assistive Devices: Glasses Physical Exam Psychiatric: Orientation: alert and oriented to person; + not oriented to place ("[place]" only; can't categorize "hospital" or select from list), + not oriented to time ("", "November", day of week = "") and not guarded Apperance: appropriately dressed and appropriately groomed (carries purse on the crook of her arm) Eye Contact: good eye contact Motor Behavior: no abnormal motor movements Speech: normal rate/rhythm/volume of speech (marked word-finding difficulty) Affect: + anxious affect Mood: + anxious mood Thought Process: + circumstantial thought process and + conc rete thought process; no confabulations (asked if she remembered me: "no") Thought Content: + paranoid (suspicious of my motives) Suicidal Thoughts: denies suicidal thoughts Homicidal Thoughts: denies homicidal thoughts Hallucinations: no auditory hallucinations and no visual hallucinations Cognition: + recent memory not intact, + remote memory not intact, + attention not intact and + language not intact (word-finding difficulty) Estimated Intelligence: consistent with education level Insight: + impaired insight Judgment: + impaired judgement Vital Signs (Past 24 Hours): Last Vital Signs Temp 36.6 C 02/22/23 15:13 Pulse 84 02/22/23 15:13 Resp 18 02/22/23 15:13 BP 143/81 H 02/22/23 15:13 Pulse Ox 97 02/22/23 15:13 O2 Del Method Room Air 02/22/23 15:13 Review of Systems is not able to participate in a useful LEANN due to cognitive impairments Results & Data (PSY) Medications Administered Cyanocobalamin (Cyanocobalamin (B-12) 500 Mcg Tablet) 1,000 mcg PO DAILY GIUSEPPE Stop: 03/17/23 08:59 Last Admin: 02/22/23 07:33 Dose: 1,000 mcg Documented By: CARLOS A Admin: 02/21/23 07:56 Dose: 1,000 mcg Documented By: CARLOS A Admin: 02/20/23 08:19 Dose: Not Given Documented By: Admin: 02/19/23 08:02 Dose: 1,000 mcg Documented By: Admin: 02/18/23 07:46 Dose: 1,000 mcg Documented By: Admin: 02/17/23 08:23 Dose: 1,000 mcg Documented By: Admin: 02/16/23 08:56 Dose: 1,000 mcg Documented By: Admin: 02/15/23 09:40 Dose: 1,000 mcg Documented By: ALEJANDRA Levothyroxine Sodium (Levothyroxine Sodium 75 Mcg Tablet) 75 mcg PO DAILYBB GIUSEPPE Stop: 03/17/23 06:29 Last Admin: 02/22/23 06:05 Dose: 75 mcg Documented By: Admin: 02/21/23 05:35 Dose: 75 mcg Documented By: Admin: 02/20/23 05:13 Dose: 75 mcg Documented By: Admin: 02/19/23 05:43 Dose: 75 mcg Documented By: Admin: 02/18/23 06:02 Dose: 75 mcg Documented By: Admin: 02/17/23 05:42 Dose: 75 mcg Documented By: Admin: 02/16/23 06:01 Dose: 75 mcg Documented By: Admin: 02/15/23 06:32 Dose: 75 mcg Documented By: MICHAEL Olanzapine (Olanzapine Zydis 5 Mg Orally Dis. Tab) 2.5 mg PO ONE PRN PRN Reason: Agitation Last Admin: 02/15/23 21:00 Dose: 2.5 mg Documented By: ELLEN Polyethylene Glycol (Polyethylene (Miralax) 17 Gm Pack) 17 gm PO DAILY PRN PRN Reason: Constipation Stop: 03/18/23 11:41 Last Admin: 02/17/23 05:42 Dose: 17 gm Documented By: KEMAL Coding Level of Care Code 03273 [facility] Hosp Care l 3 Diagnoses Major neurocognitive disorder F03.90 Time Spent (min) 89
[2023-02-23] MEDS: LEVOTHYROXINE SODIUM 75 MCG TABLET PO SCH (05:39)
[2023-02-23] MEDS: CYANOCOBALAMIN (B-12) 500 MCG TABLET PO SCH (07:32)
--- NOTE | 2023-02-23 08:23 | Hospitalist Progress Note ---
Date of Service February 23, 2023 Assessment & Plan (1) Memory problem: Plan: Likely dementia Patient is uncertain of why she came to the ED; she reportedly says she was here for an appointment Patient endorses ongoing difficulty with word finding, confusion, and some memory deficits x5 months PCP notes reviewed, failed Mini Cognitive test 01/12. Workup so far has included the following which have been negative/WNL: -Tox screen, electrolytes, TSH, B12, CRP, ESR -CT head: no acute findings -MRI brain: no acute finding, nonspecific white matter changes Vit B1 level NOT deficient. B12 low normal, replacement ordered Olanzapine 2.5 mg IM as needed for agitation; please try to use olanzapine 2.5 mg ODT as first option Psychiatry consulted --> suspect major cognitive disorder CM following, will need placement -Nikol[facility]in, ALLA Mccullough - Benny and Roland (brother) looking at facilities in [facility] was to take patient over the weekend. Radha being attempted to be contacted for discussion as patient medically stable PT/OT for placement purposes 02/21-brought in clothes from family. reports they are selling her house and finding new place to live. CM following/hopefully able to reach brother Roland about placement/facilities in [facility] reported this past week 02/22 Patient dressed/ambulating the halls. Talked w/ brother Radha on phone, very upset with him and not taking care of things/still being stuck in the hospital. Appears to me she has significant component of anxiety/depression, possibly making memory/dementia issue WORSE. Discussed at length about trial of something like vistaril short term for anxiety symptoms vs SSRI as this may take time to be effective. She wants to hold off for now until she talks w/ Radha this afternoon after he speaks with traffic survey technician. She is VERY frustrated about still being in the hospital and that something bad will happen as her brother "doesn't take care of anything". Continued discussions about vistaril/antidepressant to be undertaken. Could also consider remeron/something for appetite/weight gain as well but does report decent appetite Messaged psych about consultation for anxiety/depression -- appreciate additional recs/assistance. Holding off on any medications at present time. 02/23 Stable/ongoing issues w/ placement, CM following. To reach back out to Benny CHAN) about placement. Brother attempted to get POA switched last night -- patient DOES NOT HAVE CAPACITY to make decisions at present. Unsafe for return home. Ongoing inpatient stay She is getting more frustrated daily, olanzepine available if needed but has not required at present time (2) Vitamin B12 deficiency: Plan: B12 182, low normal and placed on 1000mcg daily (3) Hypothyroidism: Plan: 02/14 TSH: 0.507 Continue levothyroxine (4) Underweight: Plan: Underweight, BMI 16.1 kg/m*m/, moderate protein-calorie malnutrition -nutrition supplements ordered , reports good appetite (however not witnessing eating) ? Remeron for mood/appetite. psych consulted as above -- holding off for now Plan Disposition: continued inpatient stay until have safe placement.. CM following No evidence for DVT, has been ambulating the halls without issue. Admission and Anticipated Discharge Date Admission Date: February 14, 2023 Supervising Physician Co-Signing Physician Notes The patient was not seen by me. The chart was reviewed. Case discussed with ANIYA Vidal. Agree with assessment and plan Subjective Patient pacing the hallways today, increased paranoia about people not doing what they are supposed to and about her being here 2-3 weeks and cannot stay any longer. wanted to give radha POA, but then was confused about finding word for POA then relaxed once she found it. Discussed w/ CM and Benny called last night and working on getting facility. Unable to transfer POA w/o capacity and POA already set up prior. She is continually frustrated about being in the hospital and people not knowing what she's been through and how tough of a life she's led and been independent up til this point. She does know she is unsafe for return home by herself, but again frustrated about length of stay. Reassurance provided. Physical Exam Physical Exam: General: WN/WD, NAD walking around the room, dressed, clothes at bedside, tearful at times about being stuck here in the hospital/mad at her brother and benny about not getting her out of here sooner Resp: normal respiratory effort, lungs clear to auscultation CV: RRR, no murmur, no edema Extremities: Moves all extremities, no edema Neuro: Alert, oriented to self only, knows in hospital/they are selling her ho use, but speech tangential at times, forgetful/anxious and noting she has difficulty remembering things frequently repeating herself Results & Data Results & Data Vital Signs (Past 12 Hours) Vital Signs Temp Pulse Resp BP Pulse Ox O2 Del Method 02/23/23 07:29 36.6 C 74 16 131/76 98 Room Air PG Care Time/CCT Total # of Minutes Spent Total Time Spent with Patient: Total time spent is greater than 50% in coordination of care (as documented) at patient's floor/unit and/or counseling patient: Coding Level of Care Code 81183 SUB INP/OBS CARE 25MIN Diagnoses Memory problem R41.3 Vitamin B12 deficiency E53.8 Hypothyroidism E03.9 Underweight R63.6
[2023-02-23] MEDS: CHOLECALCIFEROL 1,000 UNITS 25 MCG TAB PO SCH (10:27)
[2023-02-24] MEDS: LEVOTHYROXINE SODIUM 75 MCG TABLET PO SCH (05:41)
--- NOTE | 2023-02-24 08:11 | Hospitalist Progress Note ---
Date of Service February 24, 2023 Assessment & Plan (1) Memory problem: Plan: Likely dementia Patient is uncertain of why she came to the ED; she reportedly says she was here for an appointment Patient endorses ongoing difficulty with word finding, confusion, and some memory deficits x5 months PCP notes reviewed, failed Mini Cognitive test 01/12. Workup so far has included the following which have been negative/WNL: Tox screen, electrolytes, TSH, B12, CRP, ESR CT head: no acute findings MRI brain: no acute finding, nonspecific white matter changes Vit B1 level NOT deficient. B12 low normal, replacement ordered Olanzapine 2.5 mg IM as needed for agitation; please try to use olanzapine 2.5 mg ODT as first option. HAS NOT REQUIRED Psychiatry consulted earlier, but asked to see again given my concerns for underlying depression/anxiety --> did not feel needing to start medications at this time but did note patient DOES NOT have capacity, ongoing search for placement due to safety. ALLA AMEZCUA working w/ CM about placement (see CM notes, ongoing issues, brother Adam attempted to come to get sign for POA, already in place w/ cousin Sadia) Per PCP notes dating back to Nov 2021, ongoing depression/anxiety w/ issues with her neighbors/discord. Retrial of lexapro mentioned in the past. She was resistant to starting medications then and was hopeful to find a therapist and would be happier if she moved back to the [place] area where family is. In November 2022, patient reporting "feeling stuck" in her current situation, hopeless at times, but denied SI at that time. Will trial low dose remeron for mood/anxiety/depression (also appetite) for this evening to see if any response. appears has had longstanding issues w/ anxiety depression and I do wonder if it is contributing to cognitive deficit. Vit D replacement ordered Support provided as patient w/ continued frustrations about continued inpatient stay but has not required medications for agitation at present time. PT/OT consulted and patient ambulating in the halls without issues however unsafe 2nd to dementia as above and stable for dc once placement found. (2) Vitamin B12 deficiency: Plan: B12 182, low normal and placed on 1000mcg daily and has been taking Also w/ Vit D deficiency and replacement started (declined yesterday but took today) (3) Hypothyroidism: Plan: 02/14 TSH: 0.507 Continues on levothyroxine 75mcg (4) Underweight: Plan: Underweight, BMI 16.1 kg/m*m/, moderate protein-calorie malnutrition -nutrition supplements ordered , reports good appetite when asked Plan Disposition: continued inpatient stay until have safe placement.. CM following No evidence for DVT, has been ambulating the halls without issue. Admission and Anticipated Discharge Date Admission Date: February 14, 2023 Supervising Physician Co-Signing Physician Notes The patient was not seen by me. The chart was reviewed. Case discussed with ANIYA Vidal. Agree with assessment and plan Subjective continued issues w/ placement, CM following and discussed w/ POA Sadia 02/23 that she is taking care of it. Ambulating independently, continued inpatient stay. frustration about continuing to be here but taking medications as ordered without need for any zyprexa/other. Physical Exam Physical Exam: General: 73yo thin female, fully dressed, ambulating without acute distress. frustrated about continued stay Resp: normal respiratory effort, lungs clear to auscultation CV: RRR, no murmur, no edema Extremities: Moves all extremities, no edema Neuro: Alert, oriented to self only, knows in hospital/they are selling her house, but speech tangential at times, forgetful/anxious and noting she has difficulty remembering things frequently repeating herself Results & Data Results & Data Vital Signs (Past 12 Hours) Vital Signs Temp Pulse Resp BP Pulse Ox O2 Del Method 02/24/23 07:16 36.7 C 81 15 125/63 95 Room Air PG Care Time/CCT Total # of Minutes Spent Total Time Spent with Patient: Total time spent is greater than 50% in coordination of care (as documented) at patient's floor/unit and/or counseling patient: Coding Level of Care Code 78479 SUB INP/OBS CARE 1/25MIN Diagnoses Memory problem R41.3 Vitamin B12 deficiency E53.8 Hypothyroidism E03.9 Underweight R63.6
[2023-02-24] MEDS: CHOLECALCIFEROL 1,000 UNITS 25 MCG TAB PO SCH (09:19)
[2023-02-24] MEDS: CYANOCOBALAMIN (B-12) 500 MCG TABLET PO SCH (09:20)
[2023-02-24] MEDS: MIRTAZAPINE TAB 15 MG TAB PO SCH (19:32)
[2023-02-25] MEDS: LEVOTHYROXINE SODIUM 75 MCG TABLET PO SCH (05:31)
[2023-02-25] MEDS: CYANOCOBALAMIN (B-12) 500 MCG TABLET PO SCH (07:58)
[2023-02-25] MEDS: CHOLECALCIFEROL 1,000 UNITS 25 MCG TAB PO SCH (07:58)
--- NOTE | 2023-02-25 09:42 | Hospitalist Progress Note ---
Date of Service February 25, 2023 Assessment & Plan (1) Memory problem: Plan: Likely dementia Patient is uncertain of why she came to the ED; she reportedly says she was here for an appointment Patient endorses ongoing difficulty with word finding, confusion, and some memory deficits x5 months PCP notes reviewed, failed Mini Cognitive test 01/12. Workup so far has included the following which have been negative/WNL: Tox screen, electrolytes, TSH, B12, CRP, ESR CT head: no acute findings MRI brain: no acute finding, nonspecific white matter changes Vit B1 level NOT deficient. B12 low normal, replacement ordered Olanzapine 2.5 mg IM as needed for agitation; please try to use olanzapine 2.5 mg ODT as first option. HAS NOT REQUIRED Vit D replacement ordered Psychiatry consulted earlier, but asked to see again given my concerns for underlying depression/anxiety --> did not feel needing to start medications at this time but did note patient DOES NOT have capacity, ongoing search for placement due to safety. ALLA cousin SADIA working w/ CM about placement (see CM notes, ongoing issues, brother Adam attempted to come to get sign for POA, already in place w/ cousin Sadia) Per PCP notes dating back to Nov 2021, ongoing depression/anxiety w/ issues with her neighbors/discord. Retrial of lexapro mentioned in the past. She was resistant to starting medications then and was hopeful to find a therapist and would be happier if she moved back to the [place] area where family is. In November 2022, patient reporting "feeling stuck" in her current situation, hope less at times, but denied SI at that time. Trial low dose remeron for mood/anxiety/depression (also appetite) for this evening to see if any response. appears has had longstanding issues w/ anxiety depression and I do wonder if it is contributing to cognitive deficit. --> mood appearing stable today however continued frustration. She reports she DID get some sleep last night (hadn't previously) and will continue such PT/OT consulted and patient ambulating in the halls without issues however unsafe 2nd to dementia as above and stable for dc once placement found. Support provided as patient w/ continued frustrations about continued inpatient stay but has not required medications for agitation at present time. CM following and have left MULTIPLE voicemails for Sadia. Ongoing phone tag/issues w/ placement (2) Vitamin B12 deficiency: Plan: B12 182, low normal and placed on 1000mcg daily and has been taking Also w/ Vit D deficiency and replacement started (declined day prior but has taken) (3) Hypothyroidism: Plan: 02/14 TSH: 0.507 Continues on levothyroxine 75mcg (4) Underweight: Plan: Underweight, BMI 16.1 kg/m*m/, moderate protein-calorie malnutrition -nutrition supplements ordered , reports good appetite when asked Remeron as above, hopefully will improve w/ such as well Plan Disposition: continued inpatient stay until have safe placement.. CM following No evidence for DVT, has been ambulating the halls without issue. Admission and Anticipated Discharge Date Admission Date: February 14, 2023 Supervising Physician Co-Signing Physician Notes The patient was not seen by me. The chart was reviewed. Case discussed with ANIYA Vidal. Agree with assessment and plan Subjective Eval this morning, sitting up in bed. Did get dose Remeron last night and reports she did get some sleep. Continues to be frustrated about continued inpatient stay. She is wanting to talk w/ her brother Adam. Discussed will talk w/ CM today about follow up discussions. Physical Exam Physical Exam: General: 73yo thin female, fully dressed, ambulating without acute distress. 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
[2023-02-25] MEDS: MIRTAZAPINE TAB 15 MG TAB PO SCH (19:55)
[2023-02-26 07:24] LABS: Basophils # (auto) 0.03 K/uL (0.00-0.20); Basophils % (auto) 0.6 %; Eosinophils # (auto) 0.04 K/uL (0.00-0.50); Eosinophils % (auto) 0.8 %; Hematocrit (blood only) 31.9 % (37.0-47.0); Hemoglobin 10.7 g/dl (12.0-16.0); Immature Granulocytes # (auto) 0.02 K/uL (0.01-0.20); Immature Granulocytes % (auto) 0.4 %; Lymphocytes # (auto) 1.38 K/uL (1.20-3.40); Mean Corpuscular Hemoglobin 30.3 pg (25.0-34.0); Mean Corpuscular Hgb Conc 33.5 g/dL (32.0-36.0); Mean Corpuscular Volume 90.4 fL (80.0-100.0); Mean Platelet Volume 10.8 fL (9.4-12.4); Monocytes # (auto) 0.65 K/uL (0.11-0.59); Monocytes % (auto) 13.2 %; Platelet Count 191 K/uL (130-400); RDW Coefficient of Variation 12.4 % (11.5-14.5); RDW Standard Deviation 40.4 fL (36.4-46.3); Red Blood Count 3.53 M/uL (4.20-5.40); White Blood Count 4.92 K/ul (4.8-10.8)
[2023-02-26 07:32] LABS: Albumin Globulin Ratio 1.6 (0.9-2); Albumin Level 3.6 gm/dl (3.4-5.0); BUN Creatinine Ratio 20.6 (10-20); Bilirubin,Total 0.7 mg/dl (0.2-1.0); Calcium 8.4 mg/dl (8.6-10.3); Creatinine Clr Calc Pharmacy 56.8 ml/min; Est GFR (African American) 104.6 ml/min; Est GFR (Non-African American) 90.2 ml/min; Globulin 2.2 gm/dl (2.5-4.0); Total Protein 5.8 gm/dl (6.0-8.3)
[2023-02-26] MEDS: CYANOCOBALAMIN (B-12) 500 MCG TABLET PO SCH (08:31)
[2023-02-26] MEDS: LEVOTHYROXINE SODIUM 75 MCG TABLET PO SCH (08:31)
[2023-02-26] MEDS: CHOLECALCIFEROL 1,000 UNITS 25 MCG TAB PO SCH (08:31)
--- NOTE | 2023-02-26 08:42 | Hospitalist Progress Note ---
Date of Service February 26, 2023 Assessment & Plan (1) Memory problem: Plan: Likely dementia Patient is uncertain of why she came to the ED; she reportedly says she was here for an appointment Patient endorses ongoing difficulty with word finding, confusion, and some memory deficits x5 months PCP notes reviewed, failed Mini Cognitive test 01/12. Workup so far has included the following which have been negative/WNL: Tox screen, electrolytes, TSH, B12, CRP, ESR CT head: no acute findings MRI brain: no acute finding, nonspecific white matter changes Vit B1 level NOT deficient. B12 low normal, replacement ordered Olanzapine 2.5 mg IM as needed for agitation; please try to use olanzapine 2.5 mg ODT as first option. HAS NOT REQUIRED Vit D replacement ordered Psychiatry consulted earlier, but asked to see again given my concerns for underlying depression/anxiety --> did not feel needing to start medications at this time but did note patient DOES NOT have capacity, ongoing search for placement due to safety. ALLA marcussin BENNY working w/ CM about placement (see CM notes, ongoing issues, brother Adam attempted to come to get sign for POA, already in place w/ cousin Benny) Per PCP notes dating back to Nov 2021, ongoing depression/anxiety w/ issues with her neighbors/discord. Retrial of lexapro mentioned in the past. She was resistant to starting medications then and was hopeful to find a therapist and would be happier if she moved back to the [place] area where family is. In November 2022, patient reporting "feeling stuck" in her current situation, hopeless at times, but denied SI at that time. Trial low dose remeron for mood/anxiety/depression (also appetite) for this evening to see if any response. appears has had longstanding issues w/ anxiety depression and I do wonder if it is contributing to cognitive deficit. --> mood appearing stable today however continued frustration. She reports she DID get sleep last night w/ such (hadn't previously) and will continue such PT/OT consulted and patient ambulating in the halls without issues however unsafe 2nd to dementia as above and stable for dc once placement found. Support provided as patient w/ continued frustrations about continued inpatient stay but has not required medications for agitation at present time. CM following and have left MULTIPLE voicemails for Benny. Ongoing phone tag/issues w/ placement Will call Benny this evening as well for discussion if able to reach (2) Vitamin B12 deficiency: Plan: B12 182, low normal and placed on 1000mcg daily and has been taking Also w/ Vit D deficiency and replacement started (declined day prior but has taken) (3) Hypothyroidism: Plan: 02/14 TSH: 0.507 Continues on levothyroxine 75mcg (4) Underweight: Plan: Underweight, BMI 16.1 kg/m*m/, moderate protein-calorie malnutrition -nutrition supplements ordered , reports good appetite when asked Remeron as above, hopefully will improve w/ such as well Plan Disposition: continued inpatient stay until have safe placement.. CM following No evidence for DVT, has been ambulating the halls without issue. Admission and Anticipated Discharge Date Admission Date: February 14, 2023 Subjective no changes, continued frustration inpatient. continued attempts to reach benny w/ CM and I will call her myself this evening as patient medically stable for discharge. Physical Exam 2 Physical Exam: General: 73yo thin female, fully dressed, ambulating without acute distress. 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 out for pizza/dinner back at her house Results & Data Results & Data Vital Signs (Past 12 Hours) Vital Signs Temp Pulse Resp BP Pulse Ox O2 Del Method 02/26/23 07:40 36.7 C 85 18 122/74 97 Room Air Laboratory Results 02/26/23 06:45 02/26/23 06:45 PG Care Time/CCT Total # of Minutes Spent Total Time Spent with Patient: Total time spent is greater than 50% in coordination of care (as documented) at patient's floor/unit and/or counseling patient: Coding Level of Care Code 96866 SUB INP/OBS CARE 1/25MIN Diagnoses Memory problem R41.3 Vitamin B12 deficiency E53.8 Hypothyroidism E03.9 Underweight R63.6
[2023-02-26] MEDS: POLYETHYLENE (MIRALAX) 17 GM PACK PO PRN (14:43)
[2023-02-26] MEDS: MIRTAZAPINE TAB 15 MG TAB PO SCH (21:20)
[2023-02-27] MEDS: LEVOTHYROXINE SODIUM 75 MCG TABLET PO SCH (07:25)
[2023-02-27] MEDS: POLYETHYLENE (MIRALAX) 17 GM PACK PO PRN (08:23)
[2023-02-27] MEDS: CHOLECALCIFEROL 1,000 UNITS 25 MCG TAB PO SCH (08:24)
[2023-02-27] MEDS: CYANOCOBALAMIN (B-12) 500 MCG TABLET PO SCH (08:24)
--- NOTE | 2023-02-27 15:10 | Hospitalist Progress Note ---
Date of Service February 27, 2023 Assessment & Plan (1) Memory problem: Plan: Likely dementia Patient is uncertain of why she came to the ED; she reportedly says she was here for an appointment Patient endorses ongoing difficulty with word finding, confusion, and some memory deficits x5 months PCP notes reviewed, failed Mini Cognitive test 01/12. Workup so far has included the following which have been negative/WNL: Tox screen, electrolytes, TSH, B12, CRP, ESR CT head: no acute findings MRI brain: no acute finding, nonspecific white matter changes Vit B1 level NOT deficient. B12 low normal, replacement ordered Olanzapine 2.5 mg IM as needed for agitation; please try to use olanzapine 2.5 mg ODT as first option. HAS NOT REQUIRED Vit D replacement ordered Psychiatry consulted earlier, but asked to see again given my concerns for underlying depression/anxiety --> did not feel needing to start medications at this time but did note patient DOES NOT have capacity, ongoing search for placement due to safety. ALLA marcussin BENNY working w/ CM about placement (see CM notes, ongoing issues, brother Adam attempted to come to get sign for POA, already in place w/ cousin Benny) Per PCP notes dating back to Nov 2021, ongoing depression/anxiety w/ issues with her neighbors/discord. Retrial of lexapro mentioned in the past. She was resistant to starting medications then and was hopeful to find a therapist and would be happier if she moved back to the [place] area where family is. In November 2022, patient reporting "feeling stuck" in her current situation, hopeless at times, but denied SI at that time. Trial low dose remeron for mood/anxiety/depression (also appetite) for this evening to see if any response. appears has had longstanding issues w/ anxiety depression and I do wonder if it is contributing to cognitive deficit. --> mood appearing stable today however continued frustration. She reports she DID get sleep last night w/ such (hadn't previously) and will continue such however decreased to 7.5mg HS due to some leg swelling (no evidence for DVT at present and has been frequently ambulating the halls to keep herself busy. Monitor swelling w/ reduction in dose PT/OT consulted and patient ambulating in the halls without issues however unsafe 2nd to dementia as above and stable for dc once placement found. Support provided as patient w/ continued frustrations about continued inpatient stay but has not required medications for agitation at present time. CM following and have left MULTIPLE voicemails for Benny. Ongoing phone tag/issues w/ placement however HAD BEEN BLOCKING CALLS BY ACCIDENT --> Additional call this evening now that this was resolved for ongoing discussions. Will encourage expediting process (2) Vitamin B12 deficiency: Plan: B12 182, low normal and placed on 1000mcg daily and has been taking * Also w/ Vit D deficiency and replacement started (declined last week but has been taking since that time) (3) Hypothyroidism: Plan: 02/14 TSH: 0.507 Continues on levothyroxine 75mcg (4) Underweight: Plan: Underweight, BMI 16.1 kg/m*m/, moderate protein-calorie malnutrition -nutrition supplements ordered , reports good appetite when asked Remeron as above, hopefully will improve w/ such as well and has been eating/drinking. Some pedal edema, dose reduced to 7.5mg and f/u edema for further eval if ongoing Plan Disposition: continued inpatient stay until have safe placement.. CM following No evidence for DVT, has been ambulating the halls without issue. Decreased remeron for possible contribution to swelling. Will add labs for AM Admission and Anticipated Discharge Date Admission Date: February 14, 2023 Subjective Eval this morning, ambulating the halls.. Frustration continues. Discussed Benny had hospital number blocked and will call today for further discussion regarding placement. Natalee would like to make sure not to overwhelm benny or get her upset because she doesn't want to be here but also appreciates us calling to voice medical clear for dc. She does have some leg swelling but no calf tenderness -- discussed could be from remeron and can cut dose in half and monitor for now but has been keeping mood stable. No fever/chills, chest pain or shortness of breath. Questions/concerns addressed at present time Physical Exam 2 Physical Exam: General: 73yo thin female, fully dressed, ambulating without acute distress. frustrated about continued stay but appearing calm for myself Resp: normal respiratory effort, lungs clear to auscultation CV: RRR, no mrg Extremities: Moves all extremities, some pedal edema but calves nontender, pulses palpable Neuro/psych: Alert, oriented to self only, knows in the hospital and that we have ongoing issues with placement, forgetfulness/anxious appearing at times Results & Data Results & Data Vital Signs (Past 12 Hours) Vital Signs Temp Pulse Resp BP Pulse Ox O2 Del Method 02/27/23 07:23 36.5 C 93 H 16 139/74 98 Room Air Laboratory Results 02/26/23 06:45 02/26/23 06:45 PG Care Time/CCT Total # of Minutes Spent Total Time Spent with Patient: Total time spent is greater than 50% in coordination of care (as documented) at patient's floor/unit and/or counseling patient: Coding Level of Care Code 47257 SUB INP/OBS CARE 2/35MIN Diagnoses Memory problem R41.3 Vitamin B12 deficiency E53.8 Hypothyroidism E03.9 Underweight R63.6
[2023-02-27] MEDS: MIRTAZAPINE TAB 15 MG TAB PO SCH (19:56)
[2023-02-28] MEDS: LEVOTHYROXINE SODIUM 75 MCG TABLET PO SCH (06:46)
[2023-02-28 07:17] LABS: Hematocrit (blood only) 35.4 % (37.0-47.0); Hemoglobin 11.5 g/dl (12.0-16.0); Mean Corpuscular Hemoglobin 29.7 pg (25.0-34.0); Mean Corpuscular Hgb Conc 32.5 g/dL (32.0-36.0); Mean Corpuscular Volume 91.5 fL (80.0-100.0); Mean Platelet Volume 10.4 fL (9.4-12.4); Platelet Count 224 K/uL (130-400); RDW Coefficient of Variation 12.3 % (11.5-14.5); RDW Standard Deviation 41.1 fL (36.4-46.3); Red Blood Count 3.87 M/uL (4.20-5.40); White Blood Count 4.97 K/ul (4.8-10.8)
[2023-02-28 07:55] LABS: BUN Creatinine Ratio 22.6 (10-20); Calcium 8.9 mg/dl (8.6-10.3); Creatinine Clr Calc Pharmacy 57.7 ml/min; Est GFR (African American) 105.1 ml/min; Est GFR (Non-African American) 90.7 ml/min; Magnesium 2.3 mg/dl (1.7-2.4); Potassium 4.2 mmol/L (3.5-5.1)
[2023-02-28] MEDS: CHOLECALCIFEROL 1,000 UNITS 25 MCG TAB PO SCH (08:02)
[2023-02-28] MEDS: CYANOCOBALAMIN (B-12) 500 MCG TABLET PO SCH (08:02)
--- NOTE | 2023-02-28 16:59 | Hospitalist Progress Note ---
Date of Service February 28, 2023 Assessment & Plan (1) Memory problem: Plan: Likely dementia Patient is uncertain of why she came to the ED; she reportedly says she was here for an appointment Patient endorses ongoing difficulty with word finding, confusion, and some memory deficits x5 months PCP notes reviewed, failed Mini Cognitive test 01/12. Workup so far has included the following which have been negative/WNL: -Tox screen, electrolytes, TSH, B12, CRP, ESR CT head: no acute findings MRI brain: no acute finding, nonspecific white matter changes Vit B1 level NOT deficient. B12 low normal, replacement ordered Olanzapine 2.5 mg IM as needed for agitation; please try to use olanzapine 2.5 mg ODT as first option. HAS NOT REQUIRED Vit D replacement ordered Psychiatry consulted earlier, but asked to see again 02/22 given concerns for underlying depression/anxiety. PCP notes back to Nov 2021 report ongoing anxiety/depression. Has tried Lexapro previously. In November 2022, patient reporting "feeling stuck" in her current situation, hopeless at times, but denied SI at that time. - Recommended not starting medication at this time. - did note patient DOES NOT have capacity, Trial low dose remeron for mood/anxiety/depression (also appetite) . - Sleep improved. Mood stable. - However mild pedal edema --> dose reduced to 7.5mg PT/OT consulted - recommend supervising living arrangement. CM following - working with ALLA Mccullough. [facility] can accept patient on Friday 03/02 (2) Vitamin B12 deficiency: Plan: B12 182, low normal and placed on 1000mcg daily and has been taking * Also w/ Vit D deficiency and replacement started (3) Hypothyroidism: Plan: 02/14 TSH: 0.507 Continues on levothyroxine 75mcg (4) Underweight: Plan: Underweight, BMI 16.1 kg/m*m/, moderate protein-calorie malnutrition -nutrition supplements ordered , reports good appetite when asked Remeron as above, Plan Disposition: continued inpatient stay until have safe placement.. CM following No evidence for DVT, has been ambulating the halls without issue. Admission and Anticipated Discharge Date Admission Date: February 14, 2023 Supervising Physician Co-Signing Physician Notes Attending Attestation - Chart reviewed, care plan d/w ANIYA Valdovinos. I agree with the peres components of her documentation. David Del Cid MD Subjective 1605 - patient seen sitting in chair in room. Tells me that she received really good news today when speaking with Sadia however cannot tell me what that was. denies any pain currently. States that she is quite hungry as she did not like her lunch, is agreeable to a snack. Check on her prescription provided. Also tells me that her feet were hurting her yesterday and were quite swollen but feels that they are better today. Is hopeful to get out of the hospital, but is now concerned about how she is going to pay all of her bills. Review of Systems Review of Systems: Unobtainable due to cognitive status Physical Exam Physical Exam: General: WN/WD, NAD VS as above Resp: normal respiratory effort, lungs clear to auscultation CV: RRR, no murmur, Extremities: Mild pedal edema to the right foot, nonpitting. Trace edema on the left. Edema does not extend to the ankles or leg. No calf tenderness. Neuro: Alert, oriented to self only, tangential speech Results & Data Results & Data Vital Signs (Past 12 Hours) Vital Signs Temp Pulse Resp BP Pulse Ox O2 Del Method 02/28/23 15:00 36.4 C L 75 16 115/66 99 Room Air 02/28/23 07:18 36.4 C L 74 14 123/64 97 Room Air Laboratory Results CBC reviewed. Chemistry reviewed PG Care Time/CCT Total # of Minutes Spent Total Time Spent with Patient: Total time spent is greater than 50% in coordination of care (as documented) at patient's floor/unit and/or counseling patient: Coding Level of Care Code 43684 SUB INP/OBS CARE 2/35MIN Diagnoses Memory problem R41.3 Vitamin B12 deficiency E53.8 Hypothyroidism E03.9 Underweight R63.6
[2023-02-28] MEDS: MIRTAZAPINE TAB 15 MG TAB PO SCH (20:09)
[2023-03-01] MEDS: LEVOTHYROXINE SODIUM 75 MCG TABLET PO SCH (07:27)
[2023-03-01] MEDS: CHOLECALCIFEROL 1,000 UNITS 25 MCG TAB PO SCH (08:22)
[2023-03-01] MEDS: CYANOCOBALAMIN (B-12) 500 MCG TABLET PO SCH (08:23)
--- NOTE | 2023-03-01 11:22 | Hospitalist Progress Note ---
Date of Service March 01, 2023 Assessment & Plan (1) Memory problem: Plan: Likely dementia Patient is uncertain of why she came to the ED; she reportedly says she was here for an appointment Patient endorses ongoing difficulty with word finding, confusion, and some memory deficits x5 months PCP notes reviewed, failed Mini Cognitive test 01/12. Workup so far has included the following which have been negative/WNL: -Tox screen, electrolytes, TSH, B12, CRP, ESR CT head: no acute findings MRI brain: no acute finding, nonspecific white matter changes Vit B1 level NOT deficient. B12 low normal, replacement ordered Olanzapine 2.5 mg IM as needed for agitation; please try to use olanzapine 2.5 mg ODT as first option. HAS NOT REQUIRED Vit D replacement ordered Psychiatry consulted earlier, but asked to see again 02/22 given concerns for underlying depression/anxiety. PCP notes back to Nov 2021 report ongoing anxiety/depression. Has tried Lexapro previously. In November 2022, patient reporting "feeling stuck" in her current situation, hopeless at times, but denied SI at that time. - Recommended not starting medication at this time. - did note patient DOES NOT have capacity, Trial low dose remeron for mood/anxiety/depression (also appetite) . - Sleep improved. Mood stable. - However mild pedal edema --> dose reduced to 7.5mg PT/OT consulted - recommend supervising living arrangement. CM following - working with ALLA Mccullough. [facility] can accept patient on Friday 03/02 (2) Vitamin B12 deficiency: Plan: B12 182, low normal and placed on 1000mcg daily and has been taking * Also w/ Vit D deficiency and replacement started (3) Hypothyroidism: Plan: 02/14 TSH: 0.507 Continues on levothyroxine 75mcg (4) Underweight: Plan: Underweight, BMI 16.1 kg/m*m/, moderate protein-calorie malnutrition -nutrition supplements ordered , reports good appetite when asked Remeron as above, Plan Disposition: continued inpatient stay until have safe placement.. CM following, hopeful for tomorrow 03/02 No evidence for DVT, has been ambulating the halls without issue. Admission and Anticipated Discharge Date Admission Date: February 14, 2023 Supervising Physician Co-Signing Physician Notes Attending Attestation - Chart reviewed, care plan d/w ANIYA Valdovinos. I agree with the peres components of her documentation. David Del Cid MD Subjective 1000 - Patient seen sitting in room, had just showered. Feels refreshed from the shower. She is the most alert/cognitively sound that I have seen this admission, but still have memory deficits. She is worried she is never going to get out of here. Does tell me yesterday she was quite depressed. I offered to give her medication to help this, but she declined as she was worried we would not let her leave if that was the case. I reassured her that would not happen and she continued to decline. Of note, RN reported that she has been declining Vit B12 and Vit D because only wants to take what is necessary. Denies pain, is agreeable to ice and elevate her feet today. Review of Systems Review of Systems: All systems reviewed & are unremarkable except as noted in Subjective Physical Exam Physical Exam: General: WN/WD, NAD VS as above Resp: normal respiratory effort, lungs clear to auscultation CV: RRR, no murmur, Extremities: Mild pedal edema to the right foot, nonpitting. Improved from yesterday. Mild pedal edema to the left, stable from yesterday. Edema does not extend to the ankles or leg. No calf tenderness. Neuro: Alert, oriented to self only, but understand the current situation. Most oriented I have seen her this admission Results & Data Results & Data Vital Signs (Past 12 Hours) Vital Signs Temp Pulse Resp BP Pulse Ox O2 Del Method 03/01/23 08:21 36.5 C 77 16 125/75 98 Room Air PG Care Time/CCT Total # of Minutes Spent Total Time Spent with Patient: Total time spent is greater than 50% in coordination of care (as documented) at patient's floor/unit and/or counseling patient: Coding Level of Care Code 58610 SUB INP/OBS CARE 2/35MIN Diagnoses Memory problem R41.3 Vitamin B12 deficiency E53.8 Hypothyroidism E03.9 Underweight R63.6
[2023-03-01] MEDS: MIRTAZAPINE TAB 15 MG TAB PO SCH (21:06)
[2023-03-02] MEDS: LEVOTHYROXINE SODIUM 75 MCG TABLET PO SCH (05:45)
[2023-03-02] MEDS: CYANOCOBALAMIN (B-12) 500 MCG TABLET PO SCH (08:00)
[2023-03-02] MEDS: CHOLECALCIFEROL 1,000 UNITS 25 MCG TAB PO SCH (08:00)
--- NOTE | 2023-03-02 09:39 | Discharge Summary ---
Discharge Summary Date of Service March 02, 2023 Notes For Next Care Provider -Patient refused Vit D and B12 replacement for a large part of her stay because she felt that they are not necessary -Started on Remeron during stay, some questions if was causing pedal edema and dose was decreased to 7.5mg but suspect edema is due to patient being on her feet almost the entire day. If does not transition well and continues to have irregular sleep pattern/difficulty sleeping would restart 15mg dose -Patient tolerated nutritional supplements well and would recommend that continues as she is underweight and very active Medication Changes From Visit - Remeron 7.5mg added - Vit D and Vit B12 supplemetnation Admission HPI Per Admitting Provider Lucille is a 72-year-old female with PMH of hypothyroidism, Mnire's disease, osteoporosis, depression, vitamin B12 deficiency, and memory problems. She presented for a mental health evaluation. She reportedly drove herself to the ED for an appointment, and has been depressed for the past year and a half. She states she is not in any pain. She is very anxious about being in the hospital, and is not entirely sure why she is here, but may have been sent in by her PCP Dr. Navas for a brain MRI. She endorses that she has been having ongoing difficulties with word finding, as well as confusion and some memory deficits. Patient exhibits mild hypertension at 159/85; vitals otherwise stable. ROS: Patient endorses difficulty with word finding, urinary difficulties, and some confusion and memory deficits. Patient denies fever, chills, night sweats, chest pain, shortness of breath, pleuritic CP, cough, abdominal pain, N/V/D, or numbness or tingling in the legs. Principal Dx & Hospital Course #1 = Principal Diagnosis (1) Memory problem: Likely dementia Patient is uncertain of why she came to the ED; she reportedly says she was here for an appointment Patient endorses ongoing difficulty with word finding, confusion, and some memory deficits x5 months PCP notes reviewed, failed Mini Cognitive test 01/12. Workup so far has included the following which have been negative/WNL: -Tox screen, electrolytes, TSH, B12, CRP, ESR CT head: no acute findings MRI brain: no acute finding, nonspecific white matter changes Vit B1 level NOT deficient. B12 low normal, replacement ordered Did not require Olanzapine for agitation during her stay Vit D replacement ordered Psychiatry consulted earlier, but asked to see again 02/22 given concerns for underlying depression/anxiety. PCP notes back to Nov 2021 report ongoing anxiety/depression. Has tried Lexapro previously. In November 2022, patient reporting "feeling stuck" in her current situation, hopeless at times, but denied SI at that time. - Recommended not starting medication at this time. - did note patient DOES NOT have capacity, Trial low dose remeron for mood/anxiety/depression (also appetite) . - Sleep improved. Mood stable. - However mild pedal edema --> dose reduced to 7.5mg - Of note, patient spends a large amount of her day standing/wandering in room or halls (2) Vitamin B12 deficiency: B12 182, low normal and placed on 1000mcg daily and has been taking * Also w/ Vit D deficiency and replacement started (3) Hypothyroidism: 02/14 TSH: 0.507 Continues on levothyroxine 75mcg (4) Underweight: Underweight, BMI 16.1 kg/m*m/, moderate protein-calorie malnutrition -nutrition supplements ordered , reports good appetite when asked. Would continue nutritional supplements at discharge Remeron as above, Plan Disposition: continued inpatient stay until have safe placement.. CM following, hopeful for tomorrow 03/02 No evidence for DVT, has been ambulating the halls without issue. Discharge Exam General: WN/WD, NAD VS as above Resp: normal respiratory effort, lungs clear to auscultation CV: RRR, no murmur, Extremities: Left pedal edema near complete resolution. minimal edema right foot. does not extend to ankle. Encouraged her to wear compression socks Neuro: Alert, oriented to self only, but understand the current situation. Excited to see Sadia today, but concerned Sadia is upset with her Updated Medication List Medication Instructions Recorded Confirmed Type levothyroxine 75 mcg tablet 75 mcg PO DAILY #90 tabs 10/18/22 02/14/23 Rx psyllium husk 0.4 gram capsule 0.4 g PO DAILY PRN Constipation 11/28/22 02/14/23 History (Daily Fiber) mecobalamin (vitamin B12) 1,000 1,000 mcg PO DAILY #90 tabs 01/12/23 02/14/23 Rx mcg chewable tablet alendronate 70 mg tablet 70 mg PO WK #12 tabs 02/22/23 Rx acetaminophen 325 mg tablet 650 mg (2 x 325 mg) PO Q4H PRN 03/02/23 Rx Pain #30 tabs cholecalciferol (vitamin D3) 25 3,000 unit PO QAM 30 days #30 caps 03/02/23 Rx mcg (1,000 unit) capsule mirtazapine 15 mg tablet 7.5 mg (1/2 x 15 mg) PO HS 30 days 03/02/23 Rx #15 tabs Hospital Stay Data Consultations 02/14/23 15:22 Consult Psychiatry Stat 02/14/23 16:59 ED Decision to Admit Stat 02/22/23 13:09 Consult Psychiatry Routine Diagnostic Imagining Performed 02/14/23 12:14 CT head/brain wo con Stat 02/14/23 17:36 MRI Brain [MR brain wo con] Urgent Pending Results Patient Have Any Pending Studies at Discharge: No Discharge Instructions Given to Patient (Per Discharging Provider) Ms. Leyva, You were hospitalized are coming to the ER for an unknown reason. While you were here we were concered about your safety and waited until we were able to find safe placement for you. We prefomed an extensive workup that did not show any acute cause for your confusion. You were noted to be deficient in Vit B12 and Vit D and we recommend you continue that oral supplementation. You were also started on Remeron at night to help with sleep and your appetite. Continue your thyroid medication. It was our pleasure taking care of you, Nikki Valdovinos PA-C Total Time Total Time Spent Total Time Spent (In Minutes): 45 Coding Level of Care Code 04701 INP/OBS DISCH >30 MIN Diagnoses Memory problem R41.3 Vitamin B12 deficiency E53.8 Hypothyroidism E03.9 Underweight R63.6
== END 2023-03-02 14:01 | disposition home or self-care (01) | DRG 884 ==
LOC: ED 07:57 → EDINP 16:39 → SUATTDRO 16:39 → EDINP 20:55 → 3N 02-15 17:53
DX: F41.9 Anxiety disorder, unspecified; Z91.030 Bee allergy status; Z91.83 Wandering in diseases classified elsewhere; Z68.1 Body mass index [BMI] 19.9 or less, adult; Z79.890 Hormone replacement therapy; T43.025A Adverse effect of tetracyclic antidepressants, initial encounter; Z88.5 Allergy status to narcotic agent; R60.0 Localized edema; F32.A Depression, unspecified; Z88.0 Allergy status to penicillin; E06.3 Autoimmune thyroiditis; F03.918 Unspecified dementia, unspecified severity, with other behavioral disturbance; Z91.048 Other nonmedicinal substance allergy status; E53.8 Deficiency of other specified B group vitamins; E44.0 Moderate protein-calorie malnutrition; M81.0 Age-related osteoporosis without current pathological fracture; R63.6 Underweight; Z91.018 Allergy to other foods; F03.94 Unspecified dementia, unspecified severity, with anxiety; Z79.899 Other long term (current) drug therapy; Z60.2 Problems related to living alone; F03.93 Unspecified dementia, unspecified severity, with mood disturbance; E55.9 Vitamin D deficiency, unspecified; E03.9 Hypothyroidism, unspecified